=== PATIENT | male | born 1945 | race Caucasian/White ===

== ENCOUNTER 2020-08-16 11:14 | Outpatient (CLI) | payer MEDICARE, BC, SELFPAY | END 2020-08-16 11:15 | disposition home or self-care (01) | LOC: ANHCOVIDVC 11:14 | PROVIDERS: PCP Internal Medicine | DX: Z23 Encounter for immunization (principal) | CPT/HCPCS: 0001A; 91300 ==

== ENCOUNTER 2020-09-05 13:10 | Outpatient (CLI) | payer MEDICARE, BC, SELFPAY ==
--- NOTE | 2020-09-05 13:27 | ECHO_ITS ---
Patient Info Name: Cecil Mejía Age: 74 years : 1945 Gender: Male Ht: 73 in Wt: 280 lbs BSA: 2.60 m2 HR: 84 bpm BP: 163 / 82 mmHg Heart Rhythm: Sinus Rhythm Technical Quality: Good Exam Date: 09/05/2020 1:30 PM Exam Location: [facility] Patient Status: Outpatient Admit Date: 09/05/2020 Staff Ordering Physician: Elda Muse NP Executive Steward: Kika Artis RDCS Attending Provider: Elda Muse NP Referring Physician: Almaz HERNANDEZ; Exam Type: CA echo doppler color flow Study Info Indications - dizziness and giddiness Complete two-dimensional, color flow and Doppler transthoracic echocardiogram is performed. Summary 1. Complete two-dimensional, color flow and Doppler transthoracic echocardiogram is performed. 2. Left ventricular chamber dimension is mildly enlarged. 3. Left ventricular systolic function is normal, estimated at 65-70%. 4. There is mildly increased left ventricular wall thickness. 5. The left ventricular diastolic function is grade I diastolic dysfunction. 6. Left atrial chamber dimension is mildly enlarged. 7. There is mild aortic valve calcification. 8. There is mild aortic valve regurgitation. 9. There is mild mitral valve regurgitation. 10. There is mild tricuspid valve regurgitation. 11. The aortic root size at the sinus of Valsalva is mildly dilated. Left Ventricle Left ventricular chamber dimension is mildly enlarged. Left ventricular systolic function is normal, estimated at 65-70%. There is mildly increased left ventricular wall thickness. The left ventricular diastolic function is grade I diastolic dysfunction. Right Ventricle Right ventricular chamber dimension is normal. Right ventricular systolic function is normal. Left Atria Left atrial chamber dimension is mildly enlarged. Right Atria Right atrial chamber dimension is normal. Atrial Septum Intact interatrial septum visualized by color flow imaging. Aortic Valve The aortic valve is trileaflet. There is mild aortic valve sclerosis. There is no aortic valve stenosis. There is mild aortic valve regurgitation. There is mild aortic valve calcification. Pulmonic Valve The pulmonic valve is normal. There is no pulmonic valve stenosis. There is trace pulmonic regurgitation. Mitral Valve The mitral valve has calcified annulus. There is no mitral valve stenosis. There is mild mitral valve regurgitation. Tricuspid Valve The tricuspid valve leaflets are normal. There is no significant tricuspid valve stenosis. There is mild tricuspid valve regurgitation. No pulmonary hypertension, estimated pulmonary arterial systolic pressure is 29 mmHg. Pericardium/Pleural The pericardium appears epicardial fat pad. There is trivial pericardial effusion. Inferior Vena Cava Normal inferior vena cava with >50% collapse upon inspiration consistent with normal right atrial pressure, 10 mmHg. Aorta The aortic root size at the sinus of Valsalva is mildly dilated. Left Ventricular Outflow Tract Name Value Normal LVOT 2D LVOT Diameter 2.2 cm LVOT Doppler LVOT Peak Gradien
== END 2020-09-05 13:11 | disposition home or self-care (01) ==
PROVIDERS: PCP Internal Medicine; Visit Provider Nurse Practitioner
DX: R42 Dizziness and giddiness (principal); I11.9 Hypertensive heart disease without heart failure; I70.0 Atherosclerosis of aorta; I34.0 Nonrheumatic mitral (valve) insufficiency; I36.1 Nonrheumatic tricuspid (valve) insufficiency; I35.1 Nonrheumatic aortic (valve) insufficiency
CPT/HCPCS: 93306

== ENCOUNTER 2020-09-06 11:17 | Outpatient (CLI) | payer MEDICARE, BC, SELFPAY | END 2020-09-06 11:18 | disposition home or self-care (01) | LOC: ANHCOVIDVC 11:17 | PROVIDERS: PCP Internal Medicine | DX: Z23 Encounter for immunization (principal) | CPT/HCPCS: 0002A; 91300 ==

== ENCOUNTER 2021-07-17 10:04 | Outpatient (CLI) | payer MEDICARE, BC, SELFPAY ==
--- NOTE | 2021-07-17 12:45 | WPDPFTINT ---
PFT Procedure Performed PFT Procedure Performed Spirometry with Pre/Post Bronchodilator Plethysmography (Lung Vol) Diffusing Cap (DLCO) Flow Vol Loop PFT Interpretation This is a pulmonary function test with pre and post-bronchodilator spirometry, plethysmography and diffusing capacity. The test was performed and results interpreted in accordance with the 2019 and 2005 ATS/ERS Task Force guidelines respectively using the Global Lung Function Initiative-2012 reference equations. Patient demonstrated good effort and cooperation. Reproducibility criteria were met. The quality of the pre bronchodilator spirometry maneuver was Grade A and post bronchodilator spirometry maneuver was Grade A. Findings: Spirometry: There is decreased maximal expiratory airflow at all lung volumes with concave expiratory flow tracing. The pre bronchodilator FVC is 3.70 L, 82% predicted. The pre bronchodilator FEV1 is 1.83 L, 55% predicted. The pre bronchodilator FEV1: FVC ratio is 50%. The post bronchodilator FVC is 3.55 L, representing an 4% decrease. The post bronchodilator FEV1 is 2.03 L, representing 11% increase. The post bronchodilator FEV1: FVC ratio is 57%. Plethysmography: The total lung capacity is 7.06 L, 93% predicted. Functional residual capacity is 5.06 L, 123% predicted. The residual volume is 3.36 L, 125% predicted. Diffusing capacity: The absolute diffusion capacity is 25.3, 96% predicted. The diffusing capacity corrected for alveolar volume is 5.21, 143% predicted. Impression: There is a moderately severe obstructive abnormality without significant improvement after inhaling a single dose of albuterol. The lung volumes are normal. The diffusing capacity unadjusted for hemoglobin is normal and he Diffusing capacity adjusted for alveolar volume is increased. There are no prior studies for comparison
== END 2021-07-17 10:05 | disposition home or self-care (01) ==
LOC: ANHPFT 10:06
PROVIDERS: PCP Internal Medicine; Visit Provider Nurse Practitioner
DX: R79.81 Abnormal blood-gas level (principal); R94.2 Abnormal results of pulmonary function studies
CPT/HCPCS: 94060; 94726; 94729

== ENCOUNTER 2021-09-18 11:28 | Emergency (ER) | payer MEDICARE, BC, SELFPAY ==
--- NOTE | ~2021-09-18 | XR_ITS ---
EXAMINATION: XR chest 2V EXAM DATE: 09/18/2021 11:53 INDICATION: Productive cough. Congestion. TECHNIQUE: Frontal and lateral projections of the chest obtained and reviewed. There is no prior too dy for comparison. FINDINGS: There is 1 cm left midlung zone granuloma. The lungs are otherwise clear. There are no pl eural effusions. The cardiomediastinal silhouette is within normal limits. There is no pneumothorax suspected. Patient has diffuse idiopathic skeletal hyperostosis (DISH). IMPRESSION: No acute cardiopulmonary findings. Reviewed, dictated and finalized at location B.
[2021-09-18 11:43] VITALS: BP 161/78; PULSE 101; RESP 18; TEMP 36.8; O2SAT 96
--- NOTE | 2021-09-18 11:44 | ED.URI ---
HPI - URI/Sore Throat General Chief Complaint: Upper Respiratory Infection Stated Complaint: cold symptoms Time Seen by Provider: 09/18/21 11:44 Source: patient Mode of arrival: ambulatory Limitations: no limitations History of Present Illness HPI Narrative: Cecil Mejía is a 75 yo male with PMH of copd,HTN,hyothyroid,BPH, high cholesterol,who comes to [facility] with complaints of a cough and runny nose for the last 5 days. States he cannot get any of this congestion up with coughing Has had Covid vaccination Related Data Home Medications Medication Instructions Recorded Confirmed aspirin 81 mg tablet,delayed 81 mg PO DAILY 06/06/19 09/18/21 release glucosamine HCl 500 mg tablet 500 mg PO BID tablet 02/23/20 09/18/21 vitamins A,C,O-xmhm-umzlfa 14,320 2 cap PO ONCE cap 06/04/20 09/18/21 unit-226 mg-200 unit capsule finasteride 5 mg PO DAILY 09/18/21 09/18/21 naproxen sodium [Aleve] 220 mg PO BID PRN 09/18/21 09/18/21 Allergies Allergy/AdvReac Type Severity Reaction Status Date / Time Penicillins Allergy Unknown Rash Verified 09/18/21 11:52 Review of Systems Review of Systems: CONSTITUTIONAL: Denies fever, chills, sweats. EYES: Denies visual changes, redness, discharge. ENT: Denies rhinorrhea, has congestion, sore throat, otalgia. CARDIOVASCULAR: Denies chest pain, palpitations, edema. RESPIRATORY: Denies dyspnea, wheezing, has cough GASTROINTESTINAL: Denies abdominal pain, nausea, vomiting, diarrhea. GENITOURINARY: Denies dysuria, hematuria, abnormal discharge SKIN: Denies rash or itching. NEUROLOGIC: Denies numbness, or focal weakness. PSYCHIATRIC: Denies anxiety or depression. [facility] Past Medical History Medical History BPH (benign prostatic hyperplasia) Cervical radiculopathy Cholecystectomy planned Chronic bronchitis Chronic obstructive pulmonary disease Hernia History of fracture History of measles, mumps, or rubella Hyperlipidemia Hypertension Hypothyroidism Supraventricular tachycardia Surgical History Surgical History S/P catheter ablation of slow pathway Family History Family History Father Family history of malignant neoplasm Social History Social History Social History: Caffeine-none Smoking status: Former smoker Alcohol intake: never Comments At time of signature, I agree with nursing past medical, surgical, social and family history. There is no relevant family history pertinent to the presenting complaint. Exam Narrative: GENERAL: This is a well-nourished, well-developed patient, in moderate distress. HEAD: normocephalic, atraumatic. EYES: Sclera clear/white. Vision is grossly intact. EARS: External ears normal,. Hearing grossly intact. NOSE: External nose normal without nasal discharge, nares without redness, no rhinorrhea. THROAT: Mucous membranes moist, posterior pharynx erythema NECK: Neck supple, non-tender CARDIOVASCULAR: Tachycardic rate and rhythm without murmurs, gallops, or rubs. RESPIRATORY: Diminished to auscultation. Breath sounds diminished on left. No wheezes, rales, mild rhonchi. GASTROINTESTINAL: Abdomen soft, non-tender, SKIN: warm, intact with no suspicious lesions or rash, good texture and turgor. NEURO: awake, alert, and oriented to person, place and time. There were no obvious focal neurologic abnormalities. Steady gait EXTREMITIES: Normal range of motion. BACK: Nontender without deformity Course Course Emergency Course: Patient comes with cough which is primarily nonproductive for 5 days, uses an albuterol inhaler for COPD, has taken Tussinex ask and has had no improvement Chest x-ray- The lungs are otherwise clear. There are no pleural effusions. The cardiomediastinal silhouette is within normal limits. There
== END 2021-09-18 12:09 | disposition home or self-care (01) ==
PROVIDERS: Emergency Provider Nurse Practitioner; PCP Internal Medicine
DX: J20.9 Acute bronchitis, unspecified (principal); N40.0 Benign prostatic hyperplasia without lower urinary tract symptoms; E78.5 Hyperlipidemia, unspecified; I10 Essential (primary) hypertension; E03.9 Hypothyroidism, unspecified; M54.12 Radiculopathy, cervical region; Z87.891 Personal history of nicotine dependence
CPT/HCPCS: 71046; 99213; G0463

== ENCOUNTER 2022-01-31 12:10 | Inpatient (IN) | payer MEDICARE, BC, SELFPAY ==
[2022-01-31] VITALS (23 sets, daily range): BP systolic 155–193; BP diastolic 73–88; PULSE 71–105; RESP 15–29; TEMP 36.2–36.7; O2SAT 94–99; BMI 36.9
--- NOTE | ~2022-01-31 | XR_ITS ---
EXAMINATION: XR chest 2V DATE: 01/31/2022 12:54 INDICATION: Shortness of breath TECHNIQUE: Frontal and lateral views of the chest are obtained COMPARISON: 09/18/2021 FINDINGS: The lungs are free of acute opacities. A calcified nodule of the left upper lobe is consist ent with old granulomatous disease. No pleural effusion or pneumothorax. The cardiomediastinal silhou ette is normal. There is moderate thoracic spondylosis. IMPRESSION: 1. No acute cardiopulmonary abnormality. Reviewed, dictated and finalized at location B.
--- NOTE | 2022-01-31 12:14 | ECG_ITS ---
Measurements Intervals [place] Rate: 87 P: 31 VA: 294 QRS: -50 QRSD: 126 T: 61 QT: 381 QTc: 460 Interpretive Statements SINUS RHYTHM WITH FIRST DEGREE AV BLOCK LEFT ANTERIOR FASCICULAR BLOCK [QRS AXIS <= -45, QR IN I, RS IN II] MODERATE VOLTAGE CRITERIA FOR LVH, CONSIDER NORMAL VARIANT [MEETS CRITERIA IN ONE OF: R(aVL), S(V1), R(V5), R(V5/V6)+S(V1)] ABNORMAL ECG NO PREVIOUS ECG AVAILABLE FOR COMPARISON Electronically Signed On 01-31-2022 12:56:41 CDT by Gautam Barros M.D.
[2022-01-31 12:50] LABS: Basophils Percent Auto 0.6 % (0.2-1.2); Eosinophils Absolute Auto 0.1 K/mm3 (0-0.3); Eosinophils Percent Auto 0.9 % (0-4.4); Hematocrit 42.4 % (42.0-52.0); Hemoglobin 14.1 g/dL (14.0-18.0); Immature Granulocyte Absolute 0.02 K/mm3 (0.00-0.031); Immature Granulocyte Percent A 0.3 % (0-0.5); Lymphocytes Absolute Auto 0.92 K/mm3 (0.9-3.2); Lymphocytes Percent Auto 13.5 % (18.3-44.2); Mean Corpuscular HGB Conc 33.3 g/dl (32-36); Mean Corpuscular Hemoglobin 30.9 pg (26-34); Mean Platelet Volume 9.4 fl (7.4-10.4); Monocytes Absolute Auto 0.4 K/mm3 (0.1-0.6); Monocytes Percent Auto 5.6 % (2.6-8.5); Neutrophils Absolute Auto 5.4 K/mm3 (1.3-6.7); Neutrophils Percent Auto 79.1 % (45.5-73.1); Platelet Count Result 256 k/mm3 (150-375); Red Blood Count 4.56 M/mm3 (4.6-6.20); Red Cell Distribution Width 14.1 % (11.5-14.5); White Blood Count 6.8 K/mm3 (4.5-10.0)
[2022-01-31 13:02] LABS: Alanine Aminotransferase 23 U/L (6-50); Albumin Level 4.3 g/dL (3.5-5.1); Alkaline Phosphatase 61 U/L (38-126); Anion Gap 10 mmol/L (8-16); Aspartate Amino Transferase 50 U/L (17-59); Bilirubin,Total 0.5 mg/dL (0.2-1.3); Blood Urea Nitrogen 15 mg/dL (9-20); Calcium 9.3 mg/dL (8.4-10.2); Carbon Dioxide 30 mmol/L (22-30); Chloride 98 mmol/L (98-107); Estimated CRCL calculation 98 ml/min; Estimated Glomerular Filt Rate > 60; Glucose 114 mg/dL (65-110); Potassium 3.8 mmol/L (3.4-5.0); Sodium 138 mmol/L (137-145)
--- NOTE | 2022-01-31 13:58 | PC.NURSE ---
Patient currently denies CP, dizziness, or SOB at this time. Patient ambulatory to the BR without assistance. Respirations regular and non-labored.
--- NOTE | 2022-01-31 14:12 | PC.NURSE ---
Dr. Irvin at bedside to assess pt.
[2022-01-31 15:09] LABS: Lipase 263 U/L (23-300)
--- NOTE | 2022-01-31 15:33 | ED.GENADULT ---
HPI - General Adult General Chief complaint: Shortness of Breath/Dyspnea Stated complaint: sob Time Seen by Provider: 01/31/22 13:32 History of Present Illness HPI narrative: Patient is a 76-year-old male who presents ER with chest pain. Reports at 6:30 AM he had central chest burning that was persistent. It made him short of breath and felt different than typical pressure he has from COPD. He took some antiacids which she thinks improved the discomfort. Was seen by his PCP today and referred here. No history of heart disease. Does not typically have reflux. No loss consciousness. Related Data Home Medications Medication Instructions Recorded Confirmed aspirin 81 mg tablet,delayed 81 mg PO DAILY 06/06/19 01/31/22 release (Adult Low Dose Aspirin) glucosamine HCl 500 mg tablet 500 mg PO BID 02/23/20 01/31/22 vitamins A,C,U-kisg-qpyshz 14,320 2 cap PO ONCE 06/04/20 01/31/22 unit-226 mg-200 unit capsule (PreserVision AREDS) naproxen sodium 220 mg capsule 220 mg PO BID PRN Pain, Mild 09/18/21 01/31/22 (Aleve) Allergies Allergy/AdvReac Type Severity Reaction Status Date / Time Penicillins Allergy Unknown Rash Verified 01/31/22 11:02 Review of Systems Review of Systems: All systems reviewed & are unremarkable except as noted in HPI and below Constitutional: Constitutional: Denies chills, Denies fatigue and Denies fever(s) ENT: Denies nasal congestion and Denies sore throat Cardiovascular: Cardiovascular: Reports chest pain, Denies rapid heart rate and Denies radiating jaw, neck or arm pain Respiratory: Respiratory: Denies cough, Reports dyspnea and Denies wheezing Gastrointestinal: Gastrointestinal: Denies abdominal pain, Denies nausea and Denies vomiting Neurologic: Denies headache(s), Denies focal weakness and Denies numbness PMFSH Past Medical History Medical History BPH (benign prostatic hyperplasia) Cervical radiculopathy Cholecystectomy planned Chronic bronchitis Chronic obstructive pulmonary disease Hernia History of fracture History of measles, mumps, or rubella Hyperlipidemia Hypertension Hypothyroidism Supraventricular tachycardia Surgical History Surgical History S/P catheter ablation of slow pathway Family History Family History Father Family history of malignant neoplasm Social History Social History Social History: Caffeine-none Smoking status: Former smoker Alcohol intake: never Exam Narrative: GENERAL: Well-appearing, well-nourished, and in no acute distress. HEAD: Normocephalic, atraumatic. EYES: PERRL and EOMI. CHEST: Clear to auscultation. No respiratory distress. HEART: Regular rate and rhythm. Normal peripheral pulses. ABDOMEN: Soft, nontender, nondistended. EXTREMITIES: Normal range of motion. No edema. SKIN: Warm, dry, no rash. NEURO: Alert and oriented x3. PSYCH: Normal mood and affect. Course Course Emergency Course: Patient informed of results. Consulted cardiology. Admit to hospital service. Patient to be started on heparin. Vital Signs Vital signs: Vital Signs Temperature 97.6 F 01/31/22 12:20 Pulse Rate 105 H 01/31/22 12:20 Respiratory Rate 18 01/31/22 12:20 Blood Pressure 175/79 H 01/31/22 12:20 Pulse Oximetry 96 01/31/22 12:20 Oxygen Delivery Room Air 01/31/22 12:20 Temperature 97.6 F 01/31/22 12:20 Pulse Rate 85 01/31/22 18:00 Respiratory Rate 17 01/31/22 18:00 Blood Pressure 155/75 H 01/31/22 13:58 Pulse Oximetry 98 01/31/22 18:00 Oxygen Delivery Room Air 01/31/22 13:59 Medical Decision Making Vital Signs Vital Signs: Vital Signs Temperature 97.6 F 01/31/22 12:20 Pulse Rate 105 H 01/31/22 12:20 Respiratory Rate 18 01/31/22 12:20 Blood Pressure 175/79 H
[2022-01-31] MEDS: HEPARIN SODIUM 5,000 UNITS/ML VIAL 4000 UNITS IV PUSH ×2 (16:09→22:49)
[2022-01-31] MEDS: HEPARIN SOD/D5W 100 UNITS/ML 25,000 UNITS/250 ML BAG 10 UNITS IV CONT (16:11)
[2022-01-31 16:21] LABS: INR 1.1; Prothrombin Time 13.5 Seconds (11.1-14.7)
[2022-01-31 19:37] LABS: Partial Thromboplastin Time 46.1 SECONDS (22.3-36.8)
--- NOTE | 2022-01-31 20:59 | PC.NURSE ---
This patient, Cecil Mejía, was admitted to IMU Room 201-01. Patient/family oriented to hospital policies and general routines including ID bracelet, bed and alarms, visiting hours, pain management, procedures, bathroom and other care routines, personal items, smoking policy, room service/diet, and visiting hours. Information on how to activate the Rapid Response Team has been discussed. Patient/Family are encouraged to report perceived risks to care and to ask questions if they do not understand what they are told or what they should do.
--- NOTE | 2022-01-31 21:40 | PM.IMHP ---
H&P: HPI History of Present Illness Date/Time: 01/31/22 21:40 Chief Complaint: sob and wilson Narrative: This is a 76-year-old male patient who has no prior history of any coronary artery disease. However today the patient woke up at 6:30 a.m. this morning with central chest burning and he thought that this was acid reflux. The patient was belching and was having a lot of gas. The patient stated that he took Tums and Maalox in the only thing that helped was a Maalox. The patient stated that he also took aspirin. The patient was seen by his primary care doctor who referred him to the emergency room today. First troponin was 1.590 on 2nd troponin was 12.600. Cardiology has been consulted. Cardiology has been consulted. The patient was started on heparin drip. The patient was placed in observation status on the date of service of 01/31/2022 Review of Systems Review of Systems: See HPI All systems reviewed & are unremarkable except as noted in HPI and below Constitutional: Constitutional: Reports as per HPI and Reports no additional constitutional complaints Eyes: Eyes: Reports as per HPI and Reports no additional eye complaints ENT: Reports system reviewed and no additional complaints, except as documented and Reports Normal hearing present Cardiovascular: Cardiovascular: Reports no additional cardiovascular complaints Respiratory: Respiratory: Reports no additional respiratory complaints and Reports no additional respiratory complaints Gastrointestinal: Gastrointestinal: Reports as per HPI and Reports no additional gastrointestinal complaints Musculoskeletal: Musculoskeletal: Reports no additional musculoskeletal complaints Integumentary/Breasts: Skin/Breast: Reports system reviewed and no additional complaints, except as docu and Reports as per HPI Neurologic: Reports system reviewed and no additional complaints, except as documented, Reports as per HPI and Reports Normal hearing present Psychiatric: Psychiatric: Reports no additional psychiatric complaints and Reports as per HPI Endocrine: Endocrine: Reports no additional endocrine complaints Hematologic/Lymphatic: Hematologic/Lymphatic: Reports no additional hematologic/lymphatic complaints Allergic/Immunologic: Allergic/Immunologic: Reports no additional allergic/immunologic complaints [facility] Past Medical History Medical History (Updated 01/31/22 @ 21:54 by Ann Rain NP) BPH (benign prostatic hyperplasia) Cervical radiculopathy Cholecystectomy planned Chronic bronchitis Chronic obstructive pulmonary disease Depression with anxiety Hernia History of fracture History of kidney stones History of measles, mumps, or rubella Hyperlipidemia Hypertension Hypothyroidism Supraventricular tachycardia Surgical History Surgical History (Updated 01/31/22 @ 21:56 by Ann Rain NP) H/O cardiac radiofrequency ablation History of extraction of renal calculus Hx of cholecystectomy S/P catheter ablation of slow pathway Family History Family History (Updated 01/31/22 @ 21:55 by Ann Rain NP) Father Laryngeal cancer Daughter Generalized anxiety disorder Social History Social History (Updated 01/31/22 @ 21:57 by Ann Rain NP) Social History: The patient stated that he smokes cigarettes for about a year and of half when he was in the . He has not smoked since then. Patient has 2 children. He is and lives with his . 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 He denies any alcohol marijuana or illicit drugs. The is the durable power erisa attorney for healthcare. Code status full code Smoking status: Former smoker Second hand tobacco smoke exposure: Yes Alcohol intake: former Substance use: never Spiritual care concerns: No Meds Home Medications and Allergies Home Medications Medication Instructions Recorded Confirmed Type aspirin 81 mg tablet,delayed 81 mg PO DAILY 06/06/1901/31
[2022-01-31] MEDS: ACETAMINOPHEN 500 MG TABLET PO (22:10)
[2022-01-31] MEDS: diphenhydrAMINE HCl CAP 25 MG CAPSULE PO (22:11)
[2022-01-31 22:23] LABS: Partial Thromboplastin Time 41.6 SECONDS (22.3-36.8)
[2022-01-31] MEDS: MAG HYDROX/AL HYDROX/SIMETH 30 ML UDC PO (22:49)
[2022-01-31] MEDS: TAMSULOSIN HCL 0.4 MG CAPSULE PO (22:49)
[2022-02-01] VITALS (21 sets, daily range): BP systolic 150–184; BP diastolic 65–94; PULSE 66–113; RESP 14–24; TEMP 36.2–37.3; O2SAT 95–100
[2022-02-01] MEDS: SALINE 0.65% NAS SOLN 44 ML BTL 1 SPRAY NASAL (04:19)
[2022-02-01 04:52] LABS: Hematocrit 43.5 % (42.0-52.0); Hemoglobin 14.4 g/dL (14.0-18.0); Mean Corpuscular HGB Conc 33.1 g/dl (32-36); Mean Corpuscular Hemoglobin 30.8 pg (26-34); Mean Corpuscular Volume 92.9 fl (80-100); Mean Platelet Volume 9.4 fl (7.4-10.4); Platelet Count Result 250 k/mm3 (150-375); Red Blood Count 4.68 M/mm3 (4.6-6.20); Red Cell Distribution Width 13.9 % (11.5-14.5); White Blood Count 5.5 K/mm3 (4.5-10.0)
[2022-02-01 05:04] LABS: Alanine Aminotransferase 31 U/L (6-50); Albumin Level 4.5 g/dL (3.5-5.1); Alkaline Phosphatase 66 U/L (38-126); Anion Gap 9 mmol/L (8-16); Aspartate Amino Transferase 103 U/L (17-59); Bilirubin,Total 0.8 mg/dL (0.2-1.3); Blood Urea Nitrogen 12 mg/dL (9-20); Calcium 8.7 mg/dL (8.4-10.2); Carbon Dioxide 31 mmol/L (22-30); Chloride 100 mmol/L (98-107); Estimated CRCL calculation 110 ml/min; Estimated Glomerular Filt Rate > 60; Glucose 105 mg/dL (65-110); Lipase 241 U/L (23-300); Magnesium 2.2 mg/dL (1.6-2.3); Potassium 3.3 mmol/L (3.4-5.0); Sodium 140 mmol/L (137-145)
[2022-02-01 05:05] LABS: Partial Thromboplastin Time 78.6 SECONDS (22.3-36.8)
[2022-02-01 05:09] LABS: Cholesterol 176 mg/dL (0-200); HDL Direct 89 mg/dL; Triglycerides 83 mg/dL (<150)
[2022-02-01 05:19] LABS: LDL Cholesterol Direct 52 mg/dL
[2022-02-01] MEDS: LEVOTHYROXINE SODIUM 100 MCG TABLET PO (06:42)
[2022-02-01] MEDS: POTASSIUM CHLORIDE INJ 40 MEQ in SODIUM CHLORIDE 0.9% IV 500 ML 130 MEQ IVPB (09:41)
[2022-02-01] MEDS: amLODIPine BESYLATE 5 MG TABLET 10 MG PO (09:42)
[2022-02-01] MEDS: TRIAMTERENE 37.5 MG/HCTZ 25 MG (MAXZIDE) TABLET 1 TAB PO (09:42)
[2022-02-01] MEDS: PARoxetine 10 MG TABLET 30 MG PO (09:43)
[2022-02-01] MEDS: FINASTERIDE 5 MG TABLET PO (09:43)
[2022-02-01] MEDS: SIMVASTATIN 20 MG TABLET 40 MG PO (09:43)
[2022-02-01] MEDS: ENALAPRIL MALEATE 10 MG TABLET 40 MG PO (09:43)
[2022-02-01 10:12] LABS: Partial Thromboplastin Time 65.9 SECONDS (22.3-36.8)
[2022-02-01] MEDS: HEPARIN SOD/D5W 100 UNITS/ML 25,000 UNITS/250 ML BAG 16 UNITS IV CONT (10:44)
[2022-02-01] MEDS: HEPARIN SODIUM 5,000 UNITS/ML VIAL 4000 UNITS IV PUSH (10:47)
--- NOTE | 2022-02-01 12:40 | PM.IMPN ---
Progress Note: A&P Assessment and Plan (1) Non-ST elevation NE (NSTEMI): Code(s): I21.4 - Non-ST elevation (NSTEMI) myocardial infarction Status: Acute Assessment and Plan: -cardiology has been consulted and their input which per greatly be appreciated -continue to trend troponin -patient is currently on heparin drip. -he is currently pain-free. (2) Depression with anxiety: Code(s): F41.8 - Other specified anxiety disorders Status: Acute Assessment and Plan: -continue with Paxil (3) Chronic obstructive pulmonary disease: Code(s): J44.9 - Chronic obstructive pulmonary disease, unspecified Status: Acute Assessment and Plan: -continue with home inhalers (4) Hypothyroidism: Qualifiers: Hypothyroidism type: acquired Qualified Code(s): E03.9 - Hypothyroidism, unspecified Code(s): E03.9 - Hypothyroidism, unspecified Status: Acute Assessment and Plan: -continue with levothyroxine -check thyroid (5) BPH (benign prostatic hyperplasia): Qualifiers: Lower urinary tract symptom presence: unspecified whether lower urinary tract symptoms present Qualified Code(s): N40.0 - Benign prostatic hyperplasia without lower urinary tract symptoms Code(s): N40.0 - Benign prostatic hyperplasia without lower urinary tract symptoms Status: Acute Assessment and Plan: -continue with tamsulosin -continue with finasteride (6) Hypertension: Qualifiers: Hypertension type: essential hypertension Qualified Code(s): I10 - Essential (primary) hypertension Code(s): I10 - Essential (primary) hypertension Status: Acute Assessment and Plan: -continue with enalapril -continue with amlodipine (7) Hyperlipidemia: Qualifiers: Hyperlipidemia type: unspecified Qualified Code(s): E78.5 - Hyperlipidemia, unspecified Code(s): E78.5 - Hyperlipidemia, unspecified Status: Acute Assessment and Plan: -continue with simvastatin Subjective Date/time seen: 02/01/22 12:40 No chest pain Exam Const: General: cooperative, healthy appearing, comfortable, no acute distress, well developed, awake and Physically active Nutritional Appearance: obese Orientation/consciousness: oriented to person, oriented to place, oriented to time and patient oriented x3 Limitations: no limitations HENMT: Head: normal to inspection, No palpable skull fracture present, normocephalic and atraumatic Ears: hearing grossly normal bilaterally, external ears normal and TM's normal bilaterally General nose exam: Normal external nose present and Normal nares present Eyes: General: appearance normal, both eyes and all related structures Alignment and Position: alignment normal Periorbital: periorbital findings normal Eyelids: eyelids normal Sclera: sclerae normal Pupils: Equal, round and reactive pupils present EOM: EOMs intact bilaterally Neck: Neck: normal visual inspection, full ROM, no lymphadenopathy, trachea midline and supple Chest: Chest palpation & inspection: normal inspection of the chest Resp: Effort & Inspection: normal respiratory effort Auscultation: clear to auscultation bilaterally Percussion: percussion normal Cardio: Palpation: normal PMI Rate: regular rate Rhythm: regular rhythm Heart sounds: S1 normal heart sound present and S2 normal heart sound present Peripheral pulses: Peripheral pulses 2+ throughout GI: Inspection: normal to inspection Auscultation: normal bowel sounds Rectal Exam: deferred Back/Spine/Pelvis: Cervical Spine: cervical ROM normal Skin: General skin exam: normal color Lesions: no lesions Rashes: no rashes Trauma: no lacerations or abrasions Wounds: no wounds Hair: normal Nails: normal Neuro: General: oriented to person, oriented to place, oriented to time and patient oriented x3 Cranial nerves: Yes Equal, round and reactive pupils present and Yes Normal
--- NOTE | 2022-02-01 13:41 | PM.CNCAR ---
Assessment and Plan Assessment and plan (1) Non-ST elevation [place] (NSTEMI): Code(s): I21.4 - Non-ST elevation (NSTEMI) myocardial infarction Status: Acute Assessment and Plan: Continue heparin. Aspirin 81 mg p.o. daily will be ordered. Continue p.r.n. nitroglycerin. 2D echocardiogram Doppler will be ordered and reviewed. After discussing risks benefits alternatives patient will proceed with coronary angiogram today. He verbalized understanding and is agreeable. Further workup and recommendations depend on the results of the angiogram. (2) Chronic obstructive pulmonary disease: Code(s): J44.9 - Chronic obstructive pulmonary disease, unspecified Status: Acute (3) Hypertension: Qualifiers: Hypertension type: essential hypertension Qualified Code(s): I10 - Essential (primary) hypertension Code(s): I10 - Essential (primary) hypertension Status: Acute Assessment and Plan: Above goal. Continue amlodipine, enalapril, triamterene/hydrochlorothiazide (4) Hyperlipidemia: Qualifiers: Hyperlipidemia type: unspecified Qualified Code(s): E78.5 - Hyperlipidemia, unspecified Code(s): E78.5 - Hyperlipidemia, unspecified Status: Acute Assessment and Plan: On statin History of Present Illness History of Present Illness Consult date/time: 02/01/22 13:41 Reason For Visit: NSTEMI Narrative: Reason consultation: Non-STEMI Requesting provider: Dr. Irvin Date of service 02/01/2022 History: Patient is a 76-year-old male who came to hospital yesterday morning after seeing his primary care provider. Patient woke up and had some indigestion. He took some aspirin and Maalox which did help his symptoms but he has had off and on symptoms for about 1-2 hours. He described as a heaviness in his epigastric area. He had had 3 previous episodes of the past couple of weeks which would be worsened with exertion and improved with rest. Came to the hospital and initial troponins were elevated and have continued to rise. He is currently pain-free on a heparin drip. He denies any current chest pain, shortness breath, syncope, presyncope, paroxysmal nocturnal dyspnea, orthopnea, palpitations. Does have some chronic lower extremity edema Review of Systems Review of Systems: All systems reviewed & are unremarkable except as noted in HPI and below Constitutional: Constitutional: Denies body ache(s) Eyes: Eyes: Denies blurry vision ENT: Denies dysphagia Cardiovascular: Cardiovascular: Reports chest pain Respiratory: Respiratory: Denies chest congestion and Denies cough Gastrointestinal: Gastrointestinal: Denies abdominal pain Genitourinary: Genitourinary: Denies hematuria and Denies dysuria Musculoskeletal: Musculoskeletal: Denies back pain and Denies myalgias Integumentary/Breasts: Skin/Breast: Denies rash and Denies skin pain Neurologic: Denies confusion Psychiatric: Psychiatric: Denies anxiety and Denies behavioral changes Endocrine: Endocrine: Denies excessive sweating and Denies fatigue Hematologic/Lymphatic: Hematologic/Lymphatic: Denies easy bleeding Allergic/Immunologic: Allergic/Immunologic: Denies GI upset with certain foods PMFSH Past Medical History Medical History (Updated 01/31/22 @ 21:54 by Ann Rain NP) BPH (benign prostatic hyperplasia) Cervical radiculopathy Cholecystectomy planned Chronic bronchitis Chronic obstructive pulmonary disease Depression with anxiety Hernia History of fracture History of kidney stones History of measles, mumps, or rubella Hyperlipidemia Hypertension Hypothyroidism Supraventricular tachycardia Surgical History Surgical History (Updated 01/31/22 @ 21:56 by Ann Rain NP) H/O cardiac radiofrequency ablation History of extraction of renal calculus Hx of cholecystectomy S/P catheter ablation of slow pathway Family History Family History (Updated 01/31/22 @ 21:
--- NOTE | 2022-02-01 14:25 | WPDHPUPDATE1 ---
History and Physical Update Update Date/Time: 02/01/22 14:25 History and Physical has been reviewed, including an updated exam of the patient. There are NO changes in the patient's condition. Risks, benefits, and alternatives have been discussed and questions answered. Patient agrees to proceed with procedure.
--- NOTE | 2022-02-01 14:25 | WPDMODSED ---
Moderate Sedation Note-Pt Data Patient Data Diagnosis: nstemi Present Complaint: chest pain Procedure to be performed/Plan: coronary angiogram Allergies Allergy/AdvReac Type Severity Reaction Status Date / Time Penicillins Allergy Unknown Rash Verified 01/31/22 19:38 Home Medications Medication Instructions Recorded Confirmed Type aspirin 81 mg tablet,delayed 81 mg PO DAILY 06/06/19 01/31/22 History release (Adult Low Dose Aspirin) vitamins A,C,F-puid-ktoahx 14,320 2 cap PO ONCE 06/04/20 01/31/22 History unit-226 mg-200 unit capsule (PreserVision AREDS) simvastatin 40 mg tablet 40 mg PO DAILY #90 tabs 05/22/21 01/31/22 Rx paroxetine HCl 30 mg tablet 30 mg PO DAILY #90 tabs 06/21/21 01/31/22 Rx albuterol sulfate 90 mcg/actuation 1 inh inhalation Q4H PRN shortness 08/12/21 01/31/22 Rx aerosol inhaler of breath or wheezing #6.7 grams naproxen sodium 220 mg capsule 220 mg PO BID PRN Pain, Mild 09/18/21 01/31/22 History (Aleve) amlodipine 10 mg tablet 10 mg PO DAILY #90 tabs 12/31/21 01/31/22 Rx finasteride 5 mg tablet 5 mg PO DAILY #90 tabs 12/31/21 01/31/22 Rx enalapril maleate 20 mg tablet 40 mg PO DAILY 01/31/22 01/31/22 History glucosamine sulf dipot 1 cap PO BID 01/31/22 01/31/22 History chlr,msm,chond 550 mg-C 30 mg-karma 1 mg capsule (Glucosamine Chondroitin) levothyroxine 100 mcg tablet 100 mcg PO DAILY 01/31/22 01/31/22 History tamsulosin 0.4 mg capsule 0.4 mg PO HS 01/31/22 01/31/22 History triamterene 37.5 1 tablet PO DAILY 01/31/22 01/31/22 History mg-hydrochlorothiazide 25 mg tablet Current Medications: Active Medications Acetaminophen (Acetaminophen 500 Mg Tablet) 500 mg PO HS PRN PRN Reason: Mild Pain (1-3) or Fever Last Admin: 01/31/22 22:10 Dose: 500 mg Hydrocodone Bitart/Acetaminophen (Hydrocodone/Acetaminophen (*Crx) 5-325 Mg Tablet) 1 tab PO Q4H PRN PRN Reason: Pain Rated 4-6 Al Hydrox/Mg Hydrox/Simethicone (Mag Hydrox/Al Hydrox/Simeth 30 Ml Udc) 30 ml PO Q6H PRN PRN Reason: Indigestion Last Admin: 01/31/22 22:49 Dose: 30 ml Albuterol (Albuterol Sulfate (*Sp) Aerosol 1 Puff) 1 puff INHALATION Q4H PRN PRN Reason: shortness of breath or wheezing Amlodipine Besylate (Amlodipine Besylate 5 Mg Tablet) 10 mg PO DAILY [facility] Last Admin: 02/01/22 09:42 Dose: 10 mg Aspirin (Aspirin 81 Mg Enteric Tablet) 81 mg PO QAM [facility] Diphenhydramine HCl (Diphenhydramine Hcl Cap 25 Mg Capsule) 25 mg PO HS PRN PRN Reason: Insomnia Last Admin: 01/31/22 22:11 Dose: 25 mg Enalapril Maleate (Enalapril Maleate 10 Mg Tablet) 40 mg PO DAILY [facility] Last Admin: 02/01/22 09:43 Dose: 40 mg Finasteride (Finasteride 5 Mg Tablet) 5 mg PO DAILY [facility] Last Admin: 02/01/22 09:43 Dose: 5 mg Heparin Sodium (Porcine) (Heparin Sodium 5,000 Units/Ml Vial) 4,000 units IV PUSH PRN PRN PRN Reason: aPTT less than 55 seconds Last Admin: 02/01/22 10:47 Dose: 4,000 units Heparin Sodium (Porcine) (Heparin Sodium 5,000 Units/Ml Vial) 4,000 units IV PUSH PRN PRN PRN Reason: aPTT 55 - 70 seconds Hydralazine HCl (Hydralazine Hcl 20 Mg/Ml Vial) 10 mg IV PUSH Q8H PRN PRN Reason: Blood Pressure - High Heparin Sodium/Dextrose (Heparin Sodium/D5w 100 Units/Ml) 25,000 units in 250 mls @ 16 mls/hr IV CONT .[id number] [facility]; Protocol Last Admin: 02/01/22 10:44 Dose: 1,600 units/hr, 16 mls/hr Levothyroxine Sodium (Levothyroxine Sodium 100 Mcg Tablet) 100 mcg PO DAILY@0630 [facility] Last Admin: 02/01/22 06:42 Dose: 100 mcg Morphine Sulfate (Morphine Sulfate (*Crx) 4 Mg/Ml Inj) 4 mg IV PUSH Q2H PRN PRN Reason: Pain Rated 7-10 Ondansetron HCl (Ondansetron Inj 4 Mg/2 Ml Vial) 4 mg IV PUSH Q4H PRN PRN Reason: Nausea Paroxetine HCl (Paroxetine 10 Mg Tablet) 30 mg PO DAILY MARY Last Admin: 02/01/22 09:43 Dose: 30 mg Perflutren Lipid Microsphere (Perflutren Lipid Microspheres 1.5 Ml Vial Diluted To 10 Ml Total Volume) 0 ml IV PUSH ONCE PRN; Protocol PRN Reason: adequate visualization Simvastat
--- NOTE | 2022-02-01 14:26 | WPDCARDPROC ---
Cardiac Cath Procedure Note Date of procedure:: 02/01/22 Performing physician:: Elfego Pandya MD dos: 02/01/2022 Indication:: NSTEMI Brief clinical history:: 76-year-old patient with history of hypertension, depression, hyperlipidemia presents here to the hospital with epigastric abdominal pain and was found to have elevated troponins consistent with NSTEMI Procedure Procedure performed:: 1-Moderate sedation that started at 2:48 p.m.and ended at 4:00 p.m. with total duration 72 minutesusing 2 mg of Versed and 75mg fentanyl. The registered nurse was tara quach. 2-Selective left and right coronary angiogram. 3-Left heart catheterization with measurement of LVEDP and measurement of gradient across aortic valve. 4-Right common femoral arterial angiogram. 5-Deployment of 6 [place] Angio-Seal. 6- intravascular ultrasound LAD. 8- Stent deployment to the proximal LAD using huyen 5 x 26 Sedation/Medication given:: Moderate sedation. Access site:: Right common femoral artery. Estimated blood loss:: 10cc Procedure note:: After informed consent patient was brought in to medical lab assistant with the was draped and prepped in usual manner. Moderate sedation was given and the right groin was infiltrated using 1% lidocaine. Five [place] sheath was obtained using micropuncture needle and the modified Seldinger technique. Selective left coronary angiogram was done using JL4 catheter with the tip of the catheter placed in the left main coronary artery. Selective right coronary angiogram was done using JR4 catheter with the tip of the catheter placed to the right coronary artery. After that 5 [place] pigtail catheter was advanced across the aortic valve into the left ventricle with measurement of LVEDP and measurement of gradient across aortic valve. Right common femoral arterial angiogram was done. after that we decided to intervene LAD and the CLS 3.5 was not catheter we had to use a CLS 4 to engage the left main. A luge coronary wire advanced to distal LAD and then balloon angioplasty done using a 4 x 15 with inflation to 10 atmospheres for 25 seconds. intravascular ultrasound of the LAD done and then deployment of drug-eluting stent huyen 5 x 26 under nominal pressure for 25 seconds and postdilatation of the stent done using 5 x 15 noncompliant balloon 3 inflations each under normal pressure for 25 seconds. Findings:: 1- left coronary artery is a large artery that divides into large LAD, large circumflex artery. Left main is free of disease. 2- left anterior descending artery is a large artery that runs and wraps around the apex. Has proximal 90% stenosis. From the lesion there is about small diagonal branch that has ostial 70%. 3- leftcircumflex artery is a large artery And dominant with minimal irregularities. 4- Ramus intermedius is large artery with minimal irregularities. 4- right coronary artery is Small to medium in size and non dominant minimal irregularities 5- LVEDP was 15 mm mercury and no gradient across aortic valve. 6- opening arterial pressure was 198/100 and closing pressure was 190 over 90 7- right femoral artery angiogram shows no significant disease in the right common femoral artery. 8- intravascular ultrasound of the LAD shows that the LAD diameter is about 5 mm Conclusion:: - stenting of proximal LAD using 5 x 26 stent. residual disease 90% in the ostial small diagonal that comes out from the stent. will be managed medically Assessment and Plan Assessment and plan (1) Non-ST elevation [place] (NSTEMI): Code(s): I21.4 - Non-ST elevation (NSTEMI) myocardial infarction Status: Acute Plan continue aspirin and Brilinta. risk factor modification for CAD
[2022-02-01] MEDS: SODIUM CHLORIDE 0.9% IV 1,000 ML 100 ML IV CONT (17:44)
[2022-02-01] MEDS: MAG HYDROX/AL HYDROX/SIMETH 30 ML UDC PO (18:50)
[2022-02-01] MEDS: LORazepam (*CRX) 0.5 MG TABLET PO (18:50)
[2022-02-01] MEDS: TAMSULOSIN HCL 0.4 MG CAPSULE PO (20:28)
[2022-02-01] MEDS: ACETAMINOPHEN 500 MG TABLET PO (20:28)
[2022-02-01] MEDS: diphenhydrAMINE HCl CAP 25 MG CAPSULE PO (20:28)
[2022-02-02] VITALS (8 sets, daily range): BP systolic 126–127; BP diastolic 54–57; PULSE 82–100; RESP 20; TEMP 36.3–36.6; O2SAT 95–99
[2022-02-02] MEDS: MAG HYDROX/AL HYDROX/SIMETH 30 ML UDC PO (00:04)
--- NOTE | 2022-02-02 01:25 | ECG_ITS ---
Measurements Intervals [place] Rate: 91 P: -27 [place]: 256 QRS: -30 QRSD: 117 T: -22 QT: 401 QTc: 493 Interpretive Statements SINUS RHYTHM WITH FIRST DEGREE AV BLOCK VOLTAGE CRITERIA FOR LVH [MEETS CRITERIA IN ONE OF: R(aVL), S(V1), R(V5), R(V5/V6)+S(V1)] POSSIBLE SEPTAL MYOCARDIAL INFARCTION [30 ms Q WAVE IN V1/V2], PROBABLY OLD POSSIBLE LATERAL MYOCARDIAL INFARCTION [30 ms Q WAVE IN I/aVL/V5/V6], OF INDETERMINATE AGE ABNORMAL ECG COMPARED TO ECG 01/31/2022 12:25:10 NO SIGNIFICANT CHANGES Electronically Signed On 02-02-2022 12:22:16 CDT by Osmani Stock M.D.
[2022-02-02] MEDS: ONDANSETRON INJ 4 MG/2 ML VIAL IV PUSH (01:27)
[2022-02-02] MEDS: LEVOTHYROXINE SODIUM 100 MCG TABLET PO (05:36)
[2022-02-02 08:40] LABS: Hematocrit 42.6 % (42.0-52.0); Hemoglobin 14.2 g/dL (14.0-18.0); Mean Corpuscular HGB Conc 33.3 g/dl (32-36); Mean Corpuscular Hemoglobin 31.4 pg (26-34); Mean Corpuscular Volume 94.2 fl (80-100); Mean Platelet Volume 9.4 fl (7.4-10.4); Platelet Count Result 250 k/mm3 (150-375); Red Blood Count 4.52 M/mm3 (4.6-6.20); Red Cell Distribution Width 14.3 % (11.5-14.5); White Blood Count 7.5 K/mm3 (4.5-10.0)
[2022-02-02 08:53] LABS: Alanine Aminotransferase 27 U/L (6-50); Albumin Level 4.3 g/dL (3.5-5.1); Alkaline Phosphatase 60 U/L (38-126); Anion Gap 12 mmol/L (8-16); Aspartate Amino Transferase 69 U/L (17-59); Bilirubin,Total 0.9 mg/dL (0.2-1.3); Blood Urea Nitrogen 15 mg/dL (9-20); Calcium 9.2 mg/dL (8.4-10.2); Carbon Dioxide 29 mmol/L (22-30); Chloride 99 mmol/L (98-107); Estimated CRCL calculation 57 ml/min; Estimated Glomerular Filt Rate 49; Glucose 127 mg/dL (65-110); Potassium 3.6 mmol/L (3.4-5.0); Sodium 140 mmol/L (137-145)
[2022-02-02] MEDS: TRIAMTERENE 37.5 MG/HCTZ 25 MG (MAXZIDE) TABLET 1 TAB PO (08:58)
[2022-02-02] MEDS: TICAGRELOR 90 MG TABLET PO (08:58)
[2022-02-02] MEDS: PARoxetine 10 MG TABLET 30 MG PO (08:58)
[2022-02-02] MEDS: FINASTERIDE 5 MG TABLET PO (08:59)
[2022-02-02] MEDS: ENALAPRIL MALEATE 10 MG TABLET 40 MG PO (08:59)
[2022-02-02] MEDS: SIMVASTATIN 20 MG TABLET 40 MG PO (08:59)
[2022-02-02] MEDS: ASPIRIN 81 MG ENTERIC TABLET PO (08:59)
[2022-02-02] MEDS: amLODIPine BESYLATE 5 MG TABLET 10 MG PO (08:59)
--- NOTE | 2022-02-02 10:01 | PM.DS ---
DS: Admitting Diagnosis Discharge Date February 02, 2022 Admitting Diagnosis Non-STEMI DS: Discharge Diagnosis Discharge Diagnosis (1) Non-ST elevation [place] (NSTEMI): Code(s): I21.4 - Non-ST elevation (NSTEMI) myocardial infarction Status: Acute Assessment and Plan: Status post catheterization lesion at LAD. Status post drug-eluting stent was placed. (2) Depression with anxiety: Code(s): F41.8 - Other specified anxiety disorders Status: Acute Assessment and Plan: -continue with Paxil (3) Chronic obstructive pulmonary disease: Code(s): J44.9 - Chronic obstructive pulmonary disease, unspecified Status: Acute Assessment and Plan: -continue with home inhalers (4) Hypothyroidism: Qualifiers: Hypothyroidism type: acquired Qualified Code(s): E03.9 - Hypothyroidism, unspecified Code(s): E03.9 - Hypothyroidism, unspecified Status: Acute Assessment and Plan: -continue with levothyroxine -check thyroid (5) BPH (benign prostatic hyperplasia): Qualifiers: Lower urinary tract symptom presence: unspecified whether lower urinary tract symptoms present Qualified Code(s): N40.0 - Benign prostatic hyperplasia without lower urinary tract symptoms Code(s): N40.0 - Benign prostatic hyperplasia without lower urinary tract symptoms Status: Acute Assessment and Plan: -continue with tamsulosin -continue with finasteride (6) Hypertension: Qualifiers: Hypertension type: essential hypertension Qualified Code(s): I10 - Essential (primary) hypertension Code(s): I10 - Essential (primary) hypertension Status: Acute Assessment and Plan: -continue with enalapril -continue with amlodipine (7) Hyperlipidemia: Qualifiers: Hyperlipidemia type: unspecified Qualified Code(s): E78.5 - Hyperlipidemia, unspecified Code(s): E78.5 - Hyperlipidemia, unspecified Status: Acute Assessment and Plan: -continue with simvastatin DS: Summary Hospital Course Hospital Course: Patient was with the chest pain had mild elevation troponin. Cardiology was consulted and patient was ultimately taken to the tin can laborer and found have an LAD lesion with drug-eluting stent was placed. He will be sent home on Brilinta. Otherwise patient is doing well and can be discharged home follow-up cardiology Time Spent with Patient Time attestation: Total time spent providing and/or coordinating discharge services: Exam Const: General: cooperative, healthy appearing, comfortable, no acute distress, well developed, awake and Physically active Nutritional Appearance: obese Orientation/consciousness: oriented to person, oriented to place, oriented to time and patient oriented x3 Limitations: no limitations HENMT: Head: normal to inspection, No palpable skull fracture present, normocephalic and atraumatic Ears: hearing grossly normal bilaterally, external ears normal and TM's normal bilaterally General nose exam: Normal external nose present and Normal nares present Eyes: General: appearance normal, both eyes and all related structures Alignment and Position: alignment normal Periorbital: periorbital findings normal Eyelids: eyelids normal Sclera: sclerae normal Pupils: Equal, round and reactive pupils present EOM: EOMs intact bilaterally Neck: Neck: normal visual inspection, full ROM, no lymphadenopathy, trachea midline and supple Chest: Chest palpation & inspection: normal inspection of the chest Resp: Effort & Inspection: normal respiratory effort Auscultation: clear to auscultation bilaterally Percussion: percussion normal Cardio: Palpation: normal PMI Rate: regular rate Rhythm: regular rhythm Heart sounds: S1 normal heart sound present and S2 normal heart sound present Peripheral pulses: Peripheral pulses 2+ throughout GI: Inspection: normal to inspection Auscultation: normal bowel so
--- NOTE | 2022-02-02 10:21 | PM.PNCARD ---
Progress Note: A&P Assessment and Plan (1) Non-ST elevation [place] (NSTEMI): Code(s): I21.4 - Non-ST elevation (NSTEMI) myocardial infarction Status: Acute Assessment and Plan: Continue aspirin, Brilinta, statin. Will add metoprolol tartrate 25 mg p.o. b.i.d.. Will order a 2D echocardiogram Doppler (2) Hypertension: Qualifiers: Hypertension type: essential hypertension Qualified Code(s): I10 - Essential (primary) hypertension Code(s): I10 - Essential (primary) hypertension Status: Acute Assessment and Plan: Generally above goal. Adding metoprolol today. Continue other regimen (3) Hyperlipidemia: Qualifiers: Hyperlipidemia type: unspecified Qualified Code(s): E78.5 - Hyperlipidemia, unspecified Code(s): E78.5 - Hyperlipidemia, unspecified Status: Acute (4) CAD (coronary artery disease): Code(s): I25.10 - Atherosclerotic heart disease of [place] coronary artery without angina pectoris Status: Acute Assessment and Plan: As detailed above Subjective Date/time seen: 02/02/22 10:21 76-year-old admitted for or chest pain and ACS Catheterization yesterday:1- left coronary artery is a large artery that divides into large LAD, large circumflex artery.? Left main is free of disease. 2- left anterior descending artery is a large artery that runs and wraps around the apex.? Has proximal 90% stenosis.? From the lesion there is about small diagonal branch that has ostial 70%. 3- leftcircumflex artery is a large artery? And dominant with minimal irregularities. 4-? Ramus intermedius is large artery with minimal irregularities. 4- right coronary artery is? Small to medium in size and non dominant minimal irregularities 5- LVEDP was 15 mm mercury and no gradient across aortic valve. 6- opening arterial pressure was 198/100 and closing pressure was 190 over 90 7- right femoral artery angiogram shows no significant disease in the right common femoral artery. 8- intravascular ultrasound of the LAD shows that the LAD diameter is about 5 mm Date of service 02/02/2022: Feels well. No chest pain, shortness breath, groin pain Review of Systems Review of Systems: All systems reviewed & are unremarkable except as noted in HPI and below Constitutional: Constitutional: Denies body ache(s), Denies excessive sweating and Denies fatigue Eyes: Eyes: Denies blurry vision ENT: Denies dysphagia Cardiovascular: Cardiovascular: Reports chest pain Respiratory: Respiratory: Denies chest congestion and Denies cough Gastrointestinal: Gastrointestinal: Denies abdominal pain and Denies dysphagia Genitourinary: Genitourinary: Denies hematuria and Denies dysuria Musculoskeletal: Musculoskeletal: Denies back pain and Denies myalgias Integumentary/Breasts: Skin/Breast: Denies rash and Denies skin pain Neurologic: Denies behavioral changes and Denies confusion Psychiatric: Psychiatric: Denies anxiety, Denies behavioral changes and Denies confusion Endocrine: Endocrine: Denies excessive sweating and Denies fatigue Hematologic/Lymphatic: Hematologic/Lymphatic: Denies easy bleeding Allergic/Immunologic: Allergic/Immunologic: Denies GI upset with certain foods Exam Narrative: Awake alert and oriented appears stated age Const: General: comfortable; No in distress or confusion Orientation/consciousness: No confusion HENMT: General nose exam: Normal nares present Eyes: Sclera: sclerae normal Neck: Neck: supple Thyroid: abnormal thyroid Chest: Other: No reproducible chest wall pain to palpation Resp: Effort & Inspection: normal respiratory effort Auscultation: clear to auscultation bilaterally Cardio: Rate: regular rate Rhythm: regular rhythm Heart sounds: no murmurs Other: Right groin is free of hematoma ecchymosis or bruit GI: Inspection: non-distended Auscultation: normal bowel sounds Skin: General skin exam: normal color Neuro: Gen
[2022-02-02] MEDS: METOPROLOL TARTRATE 25 MG TABLET PO (11:30)
== END 2022-02-02 12:20 | disposition home or self-care (01) | DRG 247 ==
LOC: ANHED 13:37 → ANHIMU 18:00
PROVIDERS: Internal Medicine Cardiovascular Disease; Nurse Practitioner; Admitting Provider Internal Medicine; Emergency Provider Emergency Medicine; PCP Internal Medicine; Visit Provider Chiropractor
PROC: 4A023N7 Measurement of Cardiac Sampling and Pressure, Left Heart, Percutaneous Approach (ICD-10-PCS; CPT 93452; principal; 2022-02-01 14:30)
PROC: 027034Z Dilation of Coronary Artery, One Artery with Drug-eluting Intraluminal Device, Percutaneous Approach (ICD-10-PCS; 2022-02-01 14:30)
PROC: 027034Z Dilation of Coronary Artery, One Artery with Drug-eluting Intraluminal Device, Percutaneous Approach (ICD-10-PCS; 2022-02-01 14:30)
PROC: 027034Z Dilation of Coronary Artery, One Artery with Drug-eluting Intraluminal Device, Percutaneous Approach (ICD-10-PCS; 2022-02-01 14:30)
DX: I21.4 Non-ST elevation (NSTEMI) myocardial infarction (principal); I25.10 Atherosclerotic heart disease of native coronary artery without angina pectoris; I10 Essential (primary) hypertension; E78.5 Hyperlipidemia, unspecified; J44.9 Chronic obstructive pulmonary disease, unspecified; N40.0 Benign prostatic hyperplasia without lower urinary tract symptoms; E03.9 Hypothyroidism, unspecified; M54.12 Radiculopathy, cervical region; F41.8 Other specified anxiety disorders; Z90.49 Acquired absence of other specified parts of digestive tract; Z87.891 Personal history of nicotine dependence; Z79.82 Long term (current) use of aspirin
CPT/HCPCS: 36415; 71046; 80053; 80061; 83690; 83735; 84443; 84484; 85025; 85027; 85610; 85730; 92978; 93005; 93458; 96365; 96366; 96375; 99291; A9270; C1725; C1753; C1760; C1769; C1874; C1887; C1894; C9600; G0269; G0378; J0360; J0583; J1644; J2250; J2405; J3010; J3480; J7030; J7040

== ENCOUNTER 2022-02-06 14:22 | Outpatient (CLI) | payer MEDICARE, BC, SELFPAY ==
[2022-02-06 19:47] LABS: Anion Gap 11 mmol/L (8-16); Blood Urea Nitrogen 19 mg/dL (9-20); Calcium 9.4 mg/dL (8.4-10.2); Carbon Dioxide 26 mmol/L (22-30); Chloride 101 mmol/L (98-107); Estimated Glomerular Filt Rate > 60; Glucose 98 mg/dL (65-110); Potassium 3.8 mmol/L (3.4-5.0); Sodium 138 mmol/L (137-145)
== END 2022-02-06 14:23 | disposition home or self-care (01) ==
LOC: ANHGOSHLAB 14:26
PROVIDERS: PCP Internal Medicine; Visit Provider Nurse Practitioner
DX: I25.10 Atherosclerotic heart disease of native coronary artery without angina pectoris (principal)
CPT/HCPCS: 36415; 80048

== ENCOUNTER 2022-05-03 11:00 | Emergency (ER) | payer MEDICARE, BC, SELFPAY ==
[2022-05-03 12:30] VITALS: BP 149/74; PULSE 70; RESP 18; TEMP 36.5; O2SAT 99
--- NOTE | 2022-05-03 13:43 | ED.URI ---
HPI - URI/Sore Throat General Chief Complaint: Upper Respiratory Infection Stated Complaint: congestion,headache Time Seen by Provider: 05/03/22 13:33 Source: patient Mode of arrival: ambulatory Limitations: no limitations History of Present Illness HPI Narrative: Patient presents today with 3-4 day history of sinus pressure, postnasal drip, body aches. States his nasal drainage is bloody and brown. Denies cough or fever. He has been taking Tylenol with some relief. History of COPD. Reports was sick prior to him becoming ill. States he was possibly exposed to COVID by a nephew when he went over to their home to see their new baby. Related Data Home Medications Medication Instructions Recorded Confirmed aspirin 81 mg tablet,delayed 81 mg PO DAILY 06/06/19 03/28/22 release (Adult Low Dose Aspirin) vitamins A,C,W-bvxh-evhwwl 14,320 2 cap PO ONCE 06/04/20 03/28/22 unit-226 mg-200 unit capsule (PreserVision AREDS) enalapril maleate 20 mg tablet 40 mg PO DAILY 01/31/22 03/28/22 glucosamine sulf dipot 1 cap PO BID 01/31/22 03/28/22 chlr,msm,chond 550 mg-C 30 mg-karma 1 mg capsule (Glucosamine Chondroitin) tamsulosin 0.4 mg capsule 0.4 mg PO HS 01/31/22 03/28/22 Allergies Allergy/AdvReac Type Severity Reaction Status Date / Time Penicillins Allergy Unknown Rash Verified 02/06/22 13:27 Review of Systems Review of Systems: CONSTITUTIONAL: Denies fever, chills, or sweats.+ Body aches EYES: Denies visual changes, redness, or discharge. ENT: Denies rhinorrhea, congestion, sore throat, or otalgia.+ nasal drainage, postnasal drip, sinus pressure CARDIOVASCULAR: Denies chest pain, palpitations, or edema. RESPIRATORY: Denies cough or dyspnea. GASTROINTESTINAL: Denies abdominal pain, nausea, vomiting, or diarrhea. GENITOURINARY: Denies dysuria or hematuria. SKIN: Denies rash, itching, or wounds. MUSCULOSKELETAL: Denies back pain, joint pain, or myalgia. NEUROLOGIC: Denies headache, numbness, tingling, or weakness. PSYCH: Denies depression or anxiety. [facility] Past Medical History Medical History BPH (benign prostatic hyperplasia) Cervical radiculopathy Cholecystectomy planned Chronic bronchitis Chronic obstructive pulmonary disease Depression with anxiety Hernia History of fracture History of kidney stones History of measles, mumps, or rubella Hyperlipidemia Hypertension Hypothyroidism Supraventricular tachycardia Surgical History Surgical History H/O cardiac radiofrequency ablation History of extraction of renal calculus Hx of cholecystectomy S/P catheter ablation of slow pathway Family History Family History Father Laryngeal cancer Heart disease Pulmonary disease Heart attack Daughter Generalized anxiety disorder Social History Social History Social History: The patient stated that he smokes cigarettes for about a year and of half when he was in the . He has not smoked since then. Patient has 2 children. He is and lives with his . 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 He denies any alcohol marijuana or illicit drugs. The is the durable power managing attorney for healthcare. Code status full code Smoking status: Never smoker Second hand tobacco smoke exposure: Yes Alcohol intake: former Substance use: never Spiritual care concerns: No Comments At time of signature, I have reviewed and agree with nursing past medical, surgical, social and family history unless otherwise noted. Please see nursing chart for further information. There is no relevant family history pertinent to the presenting complaint Exam Narrative: GENERAL: Well-appearing, well-nourished, and in no acute distress. HEAD: [place]
== END 2022-05-03 14:22 | disposition home or self-care (01) ==
PROVIDERS: Emergency Provider Nurse Practitioner; PCP Internal Medicine
DX: J01.90 Acute sinusitis, unspecified (principal); Z20.822 Contact with and (suspected) exposure to COVID-19; Z87.891 Personal history of nicotine dependence; N40.0 Benign prostatic hyperplasia without lower urinary tract symptoms; J44.9 Chronic obstructive pulmonary disease, unspecified; E78.5 Hyperlipidemia, unspecified; I10 Essential (primary) hypertension; E03.9 Hypothyroidism, unspecified; Z79.82 Long term (current) use of aspirin
CPT/HCPCS: 87426; 99213; C9803; G0463

== ENCOUNTER 2022-06-25 11:00 | Outpatient (RCR) | payer MEDICARE, BC, SELFPAY ==
[2022-03-28 11:53] VITALS: PULSE 59
== END 2022-06-25 11:16 | disposition home or self-care (01) ==
LOC: ANHCPREHAB 11:00
PROVIDERS: PCP Internal Medicine; Visit Provider Nurse Practitioner Adult Health
DX: Z95.5 Presence of coronary angioplasty implant and graft (principal)
CPT/HCPCS: 93798

== ENCOUNTER 2022-06-26 08:24 | Outpatient (CLI) | payer MEDICARE, BC, SELFPAY ==
[2022-06-26 19:50] LABS: Basophils Percent Auto 0.7 % (0.2-1.2); Eosinophils Absolute Auto 0.5 K/mm3 (0-0.3); Eosinophils Percent Auto 7.9 % (0-4.4); Hemoglobin 14.2 g/dL (14.0-18.0); Immature Granulocyte Absolute 0.02 K/mm3 (0.00-0.031); Immature Granulocyte Percent A 0.3 % (0-0.5); Lymphocytes Absolute Auto 1.47 K/mm3 (0.9-3.2); Lymphocytes Percent Auto 25.4 % (18.3-44.2); Mean Corpuscular HGB Conc 32.3 g/dl (32-36); Mean Corpuscular Hemoglobin 30.5 pg (26-34); Mean Corpuscular Volume 94.4 fl (80-100); Mean Platelet Volume 9.4 fl (7.4-10.4); Monocytes Absolute Auto 0.5 K/mm3 (0.1-0.6); Monocytes Percent Auto 9.3 % (2.6-8.5); Neutrophils Absolute Auto 3.3 K/mm3 (1.3-6.7); Neutrophils Percent Auto 56.4 % (45.5-73.1); Platelet Count Result 280 k/mm3 (150-375); Red Blood Count 4.66 M/mm3 (4.6-6.20); Red Cell Distribution Width 13.8 % (11.5-14.5); White Blood Count 5.8 K/mm3 (4.5-10.0)
[2022-06-26 21:36] LABS: Alanine Aminotransferase 24 U/L (6-50); Albumin Level 3.9 g/dL (3.5-5.1); Alkaline Phosphatase 54 U/L (38-126); Anion Gap 5 mmol/L (8-16); Aspartate Amino Transferase 78 U/L (17-59); Bilirubin,Total 0.7 mg/dL (0.2-1.3); Blood Urea Nitrogen 14 mg/dL (9-20); Calcium 8.5 mg/dL (8.4-10.2); Carbon Dioxide 35 mmol/L (22-30); Chloride 102 mmol/L (98-107); Cholesterol 173 mg/dL (0-200); Estimated Glomerular Filt Rate > 60; Glucose 88 mg/dL (65-110); HDL Direct 72 mg/dL; Potassium 3.7 mmol/L (3.4-5.0); Sodium 142 mmol/L (137-145); Triglycerides 75 mg/dL (<150)
[2022-06-26 21:41] LABS: LDL Cholesterol Direct 63 mg/dL
[2022-06-26 22:01] LABS: Thyroid Stimulating Hormone 0.939 uIU/mL (0.465-4.680)
== END 2022-06-26 08:25 | disposition home or self-care (01) ==
LOC: ANHGOSHLAB 08:26
PROVIDERS: PCP Internal Medicine; Visit Provider Nurse Practitioner
DX: E03.9 Hypothyroidism, unspecified (principal); I10 Essential (primary) hypertension; E78.5 Hyperlipidemia, unspecified; Z13.29 Encounter for screening for other suspected endocrine disorder; Z12.5 Encounter for screening for malignant neoplasm of prostate
CPT/HCPCS: 36415; 80053; 80061; 84153; 84443; 85025; G0103

== ENCOUNTER 2022-09-17 17:27 | Emergency (ER) | payer MEDICARE, BC, SELFPAY ==
[2022-09-17 17:36] VITALS: BP 137/55; PULSE 62; RESP 20; TEMP 36.7; O2SAT 96
[2022-09-17 17:38] VITALS: BP 137/55; PULSE 62; RESP 20; TEMP 36.7; O2SAT 96
--- NOTE | 2022-09-17 18:27 | ED.MALEGU ---
HPI - Male Genitourinary General Chief complaint: Urogenital-Male Stated complaint: Possible UTI Time Seen by Provider: 09/17/22 18:14 Source: patient Mode of arrival: ambulatory Limitations: no limitations History of Present Illness HPI Narrative: Patient presents today complaining of he, ?funny feeling with urination and blood in the urine times 3-4 days. States he had similar symptoms 2 weeks ago but these resolved after drinking a lot of water. Denies abdominal pain or flank pain. History of kidney stones, but states this does not feel similar. Denies fever, nausea vomiting, sweats or chills. Patient takes Brilinta s/p NM in January. Related Data Home Medications Medication Instructions Recorded Confirmed aspirin 81 mg tablet,delayed 81 mg PO DAILY 06/06/19 09/17/22 release (Adult Low Dose Aspirin) vitamins A,C,R-jnje-ovlxvp 4,296 2 cap PO ONCE 06/04/20 09/17/22 mcg-226 mg-90 mg capsule (PreserVision AREDS) glucosamine sulf dipot 1 cap PO BID 01/31/22 09/17/22 chlr,msm,chond 550 mg-C 30 mg-karma 1 mg capsule (Glucosamine Chondroitin) tamsulosin 0.4 mg capsule 0.4 mg PO HS 01/31/22 09/17/22 Allergies Allergy/AdvReac Type Severity Reaction Status Date / Time Penicillins Allergy Unknown Rash Verified 06/30/22 13:35 Review of Systems Review of Systems: CONSTITUTIONAL: Denies body aches, fever, chills, or sweats. EYES: Denies visual changes, redness, or discharge. ENT: Denies rhinorrhea, congestion, sore throat, or otalgia. CARDIOVASCULAR: Denies chest pain, palpitations, or edema. RESPIRATORY: Denies cough or dyspnea. GASTROINTESTINAL: Denies abdominal pain, nausea, vomiting, or diarrhea. GENITOURINARY:+ hematuria SKIN: Denies rash, itching, or wounds. MUSCULOSKELETAL: Denies back pain, joint pain, or myalgia. NEUROLOGIC: Denies headache, numbness, tingling, or weakness. PSYCH: Denies depression or anxiety. [facility] Past Medical History Medical History BPH (benign prostatic hyperplasia) Cervical radiculopathy Cholecystectomy planned Chronic bronchitis Chronic obstructive pulmonary disease Depression with anxiety Hernia History of fracture History of kidney stones History of measles, mumps, or rubella Hyperlipidemia Hypertension Hypothyroidism Supraventricular tachycardia Surgical History Surgical History H/O cardiac radiofrequency ablation History of extraction of renal calculus Hx of cholecystectomy S/P catheter ablation of slow pathway Family History Family History Father Laryngeal cancer Heart disease Pulmonary disease Heart attack Daughter Generalized anxiety disorder Social History Social History Social History: The patient stated that he smokes cigarettes for about a year and of half when he was in the . He has not smoked since then. Patient has 2 children. He is and lives with his . 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 He denies any alcohol marijuana or illicit drugs. The is the durable power transactional attorney for healthcare. Code status full code Smoking status: Never smoker Second hand tobacco smoke exposure: Yes Alcohol intake: former Substance use: never Lack of Transportation: No Lack of Food: Never True Current Housing: I Have Housing Concerned About Future Housing: No Difficulty Paying Gas/Electric Bills: No Difficulty Paying for Meds: No Currently Unemployed: No Education: High School Diploma/GED Difficulty w/ Childcare or Family Care: No Spiritual care concerns: No Comments At time of signature, I have reviewed and agree with nursing past medical, surgical, social and family history unless otherwise noted. Please see nursing chart for further information. T
== END 2022-09-17 18:37 | disposition home or self-care (01) ==
PROVIDERS: Emergency Provider Nurse Practitioner; PCP Internal Medicine
DX: N30.01 Acute cystitis with hematuria (principal); N40.0 Benign prostatic hyperplasia without lower urinary tract symptoms; J44.9 Chronic obstructive pulmonary disease, unspecified; E78.5 Hyperlipidemia, unspecified; I10 Essential (primary) hypertension; E03.9 Hypothyroidism, unspecified; Z79.82 Long term (current) use of aspirin; Z87.442 Personal history of urinary calculi
CPT/HCPCS: 81003; 87086; 99213; G0463

== ENCOUNTER 2022-10-01 13:19 | Outpatient (CLI) | payer MEDICARE, BC, SELFPAY ==
[2022-10-01 19:00] LABS: Basophils Absolute Auto 0.1 K/mm3 (0.0-0.1); Basophils Percent Auto 0.9 % (0.2-1.2); Eosinophils Absolute Auto 0.5 K/mm3 (0-0.3); Eosinophils Percent Auto 7.9 % (0-4.4); Hematocrit 43.8 % (42.0-52.0); Hemoglobin 14.4 g/dL (14.0-18.0); Immature Granulocyte Absolute 0.01 K/mm3 (0.00-0.031); Immature Granulocyte Percent A 0.2 % (0-0.5); Lymphocytes Percent Auto 25.7 % (18.3-44.2); Mean Corpuscular HGB Conc 32.9 g/dl (32-36); Mean Corpuscular Volume 94.4 fl (80-100); Mean Platelet Volume 9.4 fl (7.4-10.4); Monocytes Absolute Auto 0.5 K/mm3 (0.1-0.6); Monocytes Percent Auto 9.3 % (2.6-8.5); Neutrophils Absolute Auto 3.3 K/mm3 (1.3-6.7); Platelet Count Result 254 k/mm3 (150-375); Red Blood Count 4.64 M/mm3 (4.6-6.20); Red Cell Distribution Width 13.5 % (11.5-14.5); White Blood Count 5.8 K/mm3 (4.5-10.0)
[2022-10-01 19:46] LABS: Appearance Urine Clear (Clear); Bilirubin Urine Negative (Negative); Blood Urine Negative (Negative); Color Urine Yellow (Yellow); Glucose Urine UA Negative (Negative); Ketones Urine Negative (Negative); Leukocyte Esterase Ur Negative LEU/UL (Negative); Nitrate Urine Negative (Negative); Protein Urine Negative (Negative); Specific Grav Ur 1.015 (1.001-1.035); Urobilinogen Urine 0.2 mg/dL (<2.0)
[2022-10-01 19:47] LABS: Add Urine Microscopic? NO
[2022-10-01 19:57] LABS: Cholesterol 163 mg/dL (0-200); HDL Direct 66 mg/dL; Triglycerides 96 mg/dL (<150)
[2022-10-01 20:15] LABS: LDL Cholesterol Direct 64 mg/dL
[2022-10-01 20:27] LABS: Thyroid Stimulating Hormone 0.988 uIU/mL (0.465-4.680)
[2022-10-01 20:34] LABS: Alanine Aminotransferase 29 U/L (6-50); Albumin Level 4.2 g/dL (3.5-5.1); Alkaline Phosphatase 54 U/L (38-126); Anion Gap 2 mmol/L (8-16); Aspartate Amino Transferase 77 U/L (17-59); Bilirubin,Total 0.8 mg/dL (0.2-1.3); Blood Urea Nitrogen 16 mg/dL (9-20); Calcium 8.8 mg/dL (8.4-10.2); Carbon Dioxide 37 mmol/L (22-30); Chloride 102 mmol/L (98-107); Estimated Glomerular Filt Rate > 60; Glucose 97 mg/dL (65-110); Sodium 141 mmol/L (137-145)
== END 2022-10-01 13:20 | disposition home or self-care (01) ==
LOC: ANHGOSHLAB 13:23
PROVIDERS: Clinical Nurse Specialist; Nurse Practitioner; PCP Internal Medicine; Visit Provider Internal Medicine
DX: E03.9 Hypothyroidism, unspecified (principal); E78.5 Hyperlipidemia, unspecified; R31.9 Hematuria, unspecified; N17.9 Acute kidney failure, unspecified
CPT/HCPCS: 36415; 80053; 80061; 81003; 84443; 85025

== ENCOUNTER 2023-06-18 10:07 | Emergency (ER) | payer MEDICARE, BC, SELFPAY ==
[2023-06-18 10:50] VITALS: BP 154/68; PULSE 73; RESP 18; TEMP 36.6; O2SAT 98
--- NOTE | 2023-06-18 11:14 | ED.URI ---
HPI - URI/Sore Throat General Chief Complaint: Upper Respiratory Infection Stated Complaint: sinus pain Time Seen by Provider: 06/18/23 11:18 Source: patient, RN notes reviewed and old records reviewed Mode of arrival: ambulatory Limitations: no limitations History of Present Illness HPI Narrative: 77-year-old male presents to [facility] with complaints of runny nose and a frontal sinus pressure since Thursday, 4 days. Patient denies pain. Denies fevers. Denies sore throat. Denies chest pain or abdominal pain. Denies any cough or chest congestion States he has taken Tylenol. No other treatment prior to arrival Onset (ago): day(s) (4) Treatments prior to arrival: acetaminophen Related Data Home Medications Medication Instructions Recorded Confirmed aspirin 81 mg tablet,delayed 81 mg PO DAILY 06/06/19 10/01/22 release (Adult Low Dose Aspirin) glucosamine sulf dipot 1 cap PO BID 01/31/22 10/01/22 chlr,msm,chond 550 mg-C 30 mg-karma 1 mg capsule (Glucosamine Chondroitin) ticagrelor 60 mg tablet (Brilinta) 60 mg PO Q12H 02/05/23 Allergies Allergy/AdvReac Type Severity Reaction Status Date / Time Penicillins Allergy Unknown Rash Verified 06/18/23 11:27 Review of Systems Review of Systems: All systems reviewed & are unremarkable except as noted in HPI and below Constitutional: Constitutional: Reports no additional constitutional complaints Eyes: Eyes: Reports no additional eye complaints ENT: Reports as per HPI, Denies dizziness, Denies otalgia, Reports nasal congestion, Reports nasal discharge, Denies sinus pain and Denies sore throat Cardiovascular: Cardiovascular: Reports no additional cardiovascular complaints, Denies chest pain and Denies dyspnea Respiratory: Respiratory: Reports no additional respiratory complaints, Denies chest congestion, Denies cough and Denies dyspnea Gastrointestinal: Gastrointestinal: Reports no additional gastrointestinal complaints, Denies abdominal pain, Denies nausea and Denies vomiting Musculoskeletal: Musculoskeletal: Reports no additional musculoskeletal complaints Integumentary/Breasts: Skin/Breast: Reports system reviewed and no additional complaints, except as docu Neurologic: Reports system reviewed and no additional complaints, except as documented Psychiatric: Psychiatric: Reports no additional psychiatric complaints Allergic/Immunologic: Allergic/Immunologic: Reports no additional allergic/immunologic complaints PMFSH Past Medical History Medical History CEZAR (acute kidney injury) BPH (benign prostatic hyperplasia) Cervical radiculopathy Cholecystectomy planned Chronic bronchitis Chronic obstructive pulmonary disease Depression with anxiety Hernia History of fracture History of kidney stones History of measles, mumps, or rubella Hyperlipidemia Hypertension Hypothyroidism Supraventricular tachycardia Surgical History Surgical History H/O cardiac radiofrequency ablation History of extraction of renal calculus Hx of cholecystectomy S/P catheter ablation of slow pathway Family History Family History Father Laryngeal cancer Heart disease Pulmonary disease Heart attack Daughter Generalized anxiety disorder Social History Social History Social History: The patient stated that he smokes cigarettes for about a year and of half when he was in the . He has not smoked since then. Patient has 2 children. He is and lives with his . 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 He denies any alcohol marijuana or illicit drugs. The is the durable power finance attorney for healthcare. Code status full code Smoking status: Never smoker Second hand tobacco smoke exposure: Yes Alcohol intake: former Substan
== END 2023-06-18 12:00 | disposition home or self-care (01) ==
PROVIDERS: Emergency Provider Nurse Practitioner; PCP Internal Medicine
DX: J01.90 Acute sinusitis, unspecified (principal); Z20.822 Contact with and (suspected) exposure to COVID-19; N40.0 Benign prostatic hyperplasia without lower urinary tract symptoms; J44.9 Chronic obstructive pulmonary disease, unspecified; E78.5 Hyperlipidemia, unspecified; I10 Essential (primary) hypertension; E03.9 Hypothyroidism, unspecified; Z79.82 Long term (current) use of aspirin
CPT/HCPCS: 87426; 87804; 99213; G0463

== ENCOUNTER 2023-08-06 14:01 | Outpatient (CLI) | payer MEDICARE, BC, SELFPAY ==
[2023-08-06 16:08] LABS: Alanine Aminotransferase 21 U/L (6-50); Albumin Level 4.2 g/dL (3.5-5.1); Alkaline Phosphatase 55 U/L (38-126); Anion Gap 5 mmol/L (8-16); Aspartate Amino Transferase 109 U/L (17-59); Bilirubin,Total 0.8 mg/dL (0.2-1.3); Blood Urea Nitrogen 20 mg/dL (9-20); Calcium 9.3 mg/dL (8.4-10.2); Carbon Dioxide 33 mmol/L (22-30); Chloride 102 mmol/L (98-107); Estimated Glomerular Filt Rate > 60; Glucose 110 mg/dL (65-110); Sodium 140 mmol/L (137-145)
[2023-08-06 16:20] LABS: Basophils Absolute Auto 0.1 K/mm3 (0.0-0.1); Basophils Percent Auto 0.7 % (0.2-1.2); Eosinophils Absolute Auto 0.6 K/mm3 (0-0.3); Eosinophils Percent Auto 7.9 % (0-4.4); Immature Granulocyte Absolute 0.01 K/mm3 (0.00-0.031); Immature Granulocyte Percent A 0.1 % (0-0.5); Lymphocytes Absolute Auto 1.35 K/mm3 (0.9-3.2); Lymphocytes Percent Auto 18.6 % (18.3-44.2); Mean Corpuscular HGB Conc 31.8 g/dl (32-36); Mean Corpuscular Hemoglobin 30.4 pg (26-34); Mean Corpuscular Volume 95.7 fl (80-100); Mean Platelet Volume 9.8 fl (7.4-10.4); Monocytes Absolute Auto 0.6 K/mm3 (0.1-0.6); Neutrophils Absolute Auto 4.7 K/mm3 (1.3-6.7); Neutrophils Percent Auto 64.7 % (45.5-73.1); Platelet Count Result 258 k/mm3 (150-375); Red Cell Distribution Width 13.5 % (11.5-14.5); White Blood Count 7.3 K/mm3 (4.5-10.0)
[2023-08-06 16:33] LABS: Prostate Specific Antigen 1.4 ng/mL (< OR = 4.0); Thyroid Stimulating Hormone 0.998 uIU/mL (0.465-4.680)
[2023-08-06 16:37] LABS: MALB Creatinine Ratio 9.7 mg/g (0-30); Microalbumin Urine Random 24.9 mg/L (0-16.7)
== END 2023-08-06 14:02 | disposition home or self-care (01) ==
LOC: ANHGOSHLAB 14:03
PROVIDERS: PCP Internal Medicine; Visit Provider Nurse Practitioner
DX: E03.9 Hypothyroidism, unspecified (principal); I10 Essential (primary) hypertension; I25.10 Atherosclerotic heart disease of native coronary artery without angina pectoris; Z12.5 Encounter for screening for malignant neoplasm of prostate; Z13.29 Encounter for screening for other suspected endocrine disorder
CPT/HCPCS: 36415; 80053; 82043; 84153; 84443; 85025; G0103

== ENCOUNTER 2023-10-27 11:28 | Outpatient (CLI) | payer MEDICARE, BC, SELFPAY ==
[2023-10-27 19:02] LABS: NT Pro B Type Natriuretic Pept 177 pg/mL (19.9-100)
[2023-10-27 19:04] LABS: Alanine Aminotransferase 23 U/L (6-50); Albumin Level 4.2 g/dL (3.5-5.1); Alkaline Phosphatase 50 U/L (38-126); Anion Gap 6 mmol/L (4-12); Aspartate Amino Transferase 64 U/L (17-59); Bilirubin,Total 0.8 mg/dL (0.2-1.3); Blood Urea Nitrogen 22 mg/dL (9-20); Calcium 9.1 mg/dL (8.4-10.2); Carbon Dioxide 32 mmol/L (22-30); Chloride 103 mmol/L (98-107); Estimated Glomerular Filt Rate > 60; Glucose 109 mg/dL (65-110); Potassium 3.5 mmol/L (3.4-5.0); Sodium 141 mmol/L (137-145)
[2023-10-27 20:41] LABS: Hepatitis C Virus Antibody Negative (Negative)
== END 2023-10-27 11:29 | disposition home or self-care (01) ==
LOC: ANHGOSHLAB 11:30
PROVIDERS: PCP Internal Medicine; Visit Provider Internal Medicine
DX: R74.8 Abnormal levels of other serum enzymes (principal); R06.09 Other forms of dyspnea
CPT/HCPCS: 36415; 80053; 83880; 86803

== ENCOUNTER 2023-11-06 12:39 | Outpatient (CLI) | payer MEDICARE, BC, SELFPAY ==
--- NOTE | ~2023-11-06 | CT_ITS ---
EXAMINATION:CT chest high resolution wo me DATE: 11/06/2023 12:59 INDICATION: Other forms of dyspnea. TECHNIQUE: Computed tomography (CT) of the chest was performed without intravenous contrast. Automate d exposure control and iterative reconstruction technique were employed. The dose-length product (DLP ) was 1147.47 mGy-cm. COMPARISON: None. FINDINGS: The lungs demonstrate mild atelectasis. A calcified left lung nodule and calcified left hil ar mediastinal lymph nodes are consistent with old granulomatous disease. No bronchiectasis or honeyc ombing. No pleural effusion. The heart size is normal. There are coronary artery calcifications. Ther e is a trace pericardial effusion. There is a 7 mm stone in right kidney. There is an 8 mm stone in l eft kidney. There are changes of cholecystectomy. There is an old healed bilateral rib fractures. The re is mild thoracic spondylosis. Thoracic kyphosis is noted. IMPRESSION: 1. No significant lung disease. Reviewed, dictated and finalized at location E.
--- NOTE | 2023-11-09 10:22 | P.PCNPFT_ITS ---
PFT Procedure Performed PFT Procedure Performed Plethysmography (Lung Vol) Diffusing Cap (DLCO) Flow Vol Loop Spirometry w/o Bronchodil PFT Interpretation Lung volumes were measured with the body plethysmography method the diminished lung volumes are indicative of a restrictive respiratory disease spirometry s howed diminished expiratory flow rates and a diminished FEV1 to FVC ratio 57%, indicative of a obstructive airway disease. No post bronchodilator study carried out. Lung diffusion capacity is within the normal range at 73% predicted. The flow volume loop is consistent with obstructive airway disease. In comparison to previous study done in early 2021, forced vital capacity is now lower by approximately 0.7 L and total lung capacity also lower by approximately 1.5 L. Impression: Combined restrictive respiratory and obstructive airway disease. Lung diffusion capacity within the normal range.
== END 2023-11-06 12:40 | disposition home or self-care (01) ==
PROVIDERS: PCP Internal Medicine; Visit Provider Internal Medicine
DX: R94.2 Abnormal results of pulmonary function studies (principal); R06.09 Other forms of dyspnea
CPT/HCPCS: 71250; 94375; 94726; 94729

== ENCOUNTER 2024-04-26 12:32 | Outpatient (CLI) | payer MEDICARE, BC, SELFPAY ==
[2024-04-26 13:34] LABS: Alanine Aminotransferase 25 U/L (6-50); Albumin Level 4.2 g/dL (3.5-5.1); Alkaline Phosphatase 56 U/L (38-126); Anion Gap 3 mmol/L (4-12); Aspartate Amino Transferase 109 U/L (17-59); Bilirubin,Total 0.7 mg/dL (0.2-1.3); Blood Urea Nitrogen 18 mg/dL (9-20); Calcium 9.5 mg/dL (8.4-10.2); Carbon Dioxide 37 mmol/L (22-30); Chloride 98 mmol/L (98-107); Estimated Glomerular Filt Rate > 60; Glucose 99 mg/dL (65-110); Potassium 3.5 mmol/L (3.4-5.0); Sodium 138 mmol/L (137-145)
[2024-04-26 13:46] LABS: Basophils Absolute Auto 0.1 K/mm3 (0.0-0.1); Basophils Percent Auto 0.9 % (0.2-1.2); Eosinophils Absolute Auto 0.5 K/mm3 (0-0.3); Eosinophils Percent Auto 9.2 % (0-4.4); Hematocrit 42.2 % (42.0-52.0); Hemoglobin 13.9 g/dL (14.0-18.0); Immature Granulocyte Absolute 0.01 K/mm3 (0.00-0.031); Immature Granulocyte Percent A 0.2 % (0-0.5); Lymphocytes Absolute Auto 1.34 K/mm3 (0.9-3.2); Lymphocytes Percent Auto 24.6 % (18.3-44.2); Mean Corpuscular HGB Conc 32.9 g/dl (32-36); Mean Corpuscular Hemoglobin 30.6 pg (26-34); Monocytes Absolute Auto 0.6 K/mm3 (0.1-0.6); Monocytes Percent Auto 10.5 % (2.6-8.5); Neutrophils Percent Auto 54.6 % (45.5-73.1); Platelet Count Result 224 k/mm3 (150-375); Red Blood Count 4.54 M/mm3 (4.6-6.20); Red Cell Distribution Width 14.3 % (11.5-14.5); White Blood Count 5.5 K/mm3 (4.5-10.0)
[2024-04-26 14:54] LABS: Folic Acid > 20.0 ng/mL (2.76->20)
== END 2024-04-26 12:33 | disposition home or self-care (01) ==
LOC: ANHGOSHLAB 12:34
PROVIDERS: PCP Internal Medicine; Visit Provider Internal Medicine
DX: R00.1 Bradycardia, unspecified (principal); I25.10 Atherosclerotic heart disease of native coronary artery without angina pectoris; I10 Essential (primary) hypertension; R53.83 Other fatigue; F41.8 Other specified anxiety disorders
CPT/HCPCS: 36415; 80053; 82607; 82746; 84402; 84403; 84443; 85025

== ENCOUNTER 2024-04-28 12:59 | Outpatient (CLI) | payer MEDICARE, BC, SELFPAY ==
--- NOTE | ~2024-04-28 | US_ITS ---
EXAMINATION: US soft tissue chest DATE: 04/28/2024 14:17 INDICATION: Anterior chest mass. TECHNIQUE: Multiple grayscale and Doppler ultrasound images of the anterior chest were obtained. COMPARISON: Chest CT 11/06/2023 FINDINGS: In the left anterior superior chest, there is an 8.7 x 2.3 x 4.4 cm subcutaneous mass that is isoechoic to normal subcutaneous fat, consistent with a lipoma. IMPRESSION: 1. Subcutaneous lipoma in left anterior superior chest. Reviewed, dictated and finalized at location A. RED VEHICLE OFFICER
== END 2024-04-28 13:00 | disposition home or self-care (01) ==
PROVIDERS: PCP Internal Medicine; Visit Provider Plastic Surgery
DX: R22.2 Localized swelling, mass and lump, trunk (principal)
CPT/HCPCS: 76604

== ENCOUNTER 2024-05-26 09:10 | Outpatient (CLI) | payer MEDICARE, BC, SELFPAY ==
--- NOTE | ~2024-05-26 | US_ITS ---
Limited Abdominal Sonogram: Real-time sonographic imaging of the right upper quadrant was performed. Clinical History: Abnormal serum enzyme levels Findings: The liver appears normal with no evidence of bile duct dilatation. 7 mm hypoechoic focus p resent in the right hepatic lobe. Main portal vein demonstrates normal direction of flow. The gallbla dder is absent, compatible prior cholecystectomy. The common bile duct measures 5 mm. The visualized pancreas, aorta, and IVC are unremarkable. Impression: 7 mm echogenic structure in the liver. This could reflect small hemangioma. Consider follow-up MR to attempt to confirm. Status post cholecystectomy. Reviewed, dictated and finalized at location . NOSTIC RADIOLOGIC TECHNOLOGIST Impression: 7 mm echogenic structure in the liver. This could reflect small hemangioma. Con prepress operator follow-up MR to attempt to confirm. Status post cholecystectomy.
== END 2024-05-26 09:11 | disposition home or self-care (01) ==
PROVIDERS: PCP Internal Medicine; Visit Provider Internal Medicine
DX: R74.8 Abnormal levels of other serum enzymes (principal); Z90.49 Acquired absence of other specified parts of digestive tract
CPT/HCPCS: 76705

== ENCOUNTER 2024-08-04 11:24 | Outpatient (NON) | payer MEDICARE, BC, SELFPAY | END 2024-08-04 11:25 | disposition home or self-care (01) | PROVIDERS: PCP Internal Medicine; Visit Provider Plastic Surgery | DX: D17.1 Benign lipomatous neoplasm of skin and subcutaneous tissue of trunk (principal) | CPT/HCPCS: 88304 ==

== ENCOUNTER 2024-10-19 13:54 | Outpatient (CLI) | payer MEDICARE, BC, SELFPAY ==
--- OUTSIDE RECORDS SUMMARY | 2024-10-19 14:06 | XMS_ITS | Encounter Summary ---
Author Organization [facility] Address [address] [facility] [place] [address] Care Team Providers Care Shank Rander Name Role Phone Unavailable Primary Care Provider Unavailabl e Encounter Details Date Type Department Care Team (Late st Contact Info) Description 11/03/2019 Lab Requisition [facility] DermPath Lab 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 Gender Identity Not on file Sexual Orientation Not on file documented as of this encounter Plan of Treatment Not on file documented as of this encounter Procedures Procedure Name Priority Date/Time Associated Diagnosis Comments DERMATOPATHOLOGY Routine 11/02/2019 12:0 0 AM CDT documented in this encounter Results * DERMATOPATHOLOGY (11/02/2019 12:00 AM CDT) Case Report Dermatopathology Report Case: [id number] Authorizing Provider: Servando Cuellar MD Collected: 11/02/2019 12:00 AM Ordering Location: [facility] DermPath Lab Received: 11/03/2019 12:37 PM Pathologist: Anisa Wilson MD Specimen: Skin, left lower lat marjorie lip border 0 12:33 PM CDT DERMATOPATHOLOGY LABORATORY Final Diagnosis Specimen A. 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 0 12:33 PM CDT DERMATOPATHOLOGY LABORATORY Gross Description Specimen A: Received is one formalin filled container labeled with the patient's name and designated left lower lat marjorie lip border. The specimen consists of a shave biopsy measuring [id number], bisected. Jar 0. 0 12:33 PM CDT DERMATOPATHOLOGY LABORATORY Microscopic Description Specimen A. SKIN, left lower lat marjorie lip border: Sections show a proliferation of blood vessels in lobules lined by uniform endothelial cells and by fibrous septa. The stroma is edematous and contains a mixed inflammatory cell infiltrate. The overlying epidermis is eroded. 0 12:33 PM CDT DERMATOPATHOLOGY LABORATORY Disclaimer An external and internal positive and negative controls are appropriate for the histochemical, immunohistochemical and immunofluorescence stain(s) in this case (if any), except where stated explicitly. The performance characteristics of the stain(s) cited in this report were developed and its performance characteristic determined by the Dermatopathology Laboratory at [facility], directed by Dr. Johnson Souza. These tests need not be, and therefore are not, approved by the [place] Food and Drug Administration. The tests are used for clinical purposes. Billing Codes Specimen Charges Stain Charges 99084 1 0 12:33 PM CDT DERMATOPATHOLOGY LABORATORY Embedded Images 0 12:33 PM CDT DERMATOPATHOLOGY LABORATORY Pathology/Cytolog y TISSUE SPECIMEN FROM SKIN / Unknown 11/02/2019 11/03/2019 12:37 PM CDT Servando Cuellar MD LAB - PATHOLOGY/CYTOLOGY ORD ERABLES Final Result DERMATOPATHOLOGY LABORATORY [facility] - Department of Dermatology [facility] [address] [place] [address] documented in this encounter Visit Diagnoses Not on filedocumented in this encounter
--- OUTSIDE RECORDS SUMMARY | 2024-10-19 14:06 | XMS_ITS | Encounter Summary ---
Author Organization [facility] Address [address] [place] [address] Care Team Providers Care Surveillance Inspector Name Role Phone Unavailable Primary Care Provider Unavailabl e Encounter Details Date Type Department Care Team (Late st Contact Info) Description 04/22/2018 Lab Requisition [facility] Derm[facility] Lab [address] [facility] [place] [address] Servando Cuellar MD [address] [place] [address] Social History Tobacco Use Types Packs/Day Years Used Date Smoking Tobacco: Never Assessed Sex and Gender Information Value Date Recorded Sex Assigned at Not on file 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 Gender Identity Not on file Sexual Orientation Not on file documented as of this encounter Plan of Treatment Not on file documented as of this encounter Procedures Procedure Name Priority Date/Time Associated Diagnosis Comments DERMATOPATHOLOGY Routine 04/21/2018 12:0 0 AM AED TRAINER documented in this encounter Results * DERMATOPATHOLOGY (04/21/2018 12:00 AM AED TRAINER) Case Report Dermatopathology Report Case: [id number] Authorizing Provider: Servando Cuellar MD Collected: 04/21/2018 12:00 AM Pathologist: Sherry Keenan MD Received: 04/22/2018 12:16 PM Specimen: Skin, left sideburn 1:03 PM [facility] DERMATOPATHOLOGY LABORATORY Final Diagnosis Specimen A. SKIN, left sideburn: SOLAR LENTIGO (L81.4) 1:03 PM [facility] DERMATOPATHOLOGY LABORATORY Clinical History R/O ISK 1:03 PM [facility] DERMATOPATHOLOGY LABORATORY Gross Description Specimen A: Received is one formalin filled container labeled with the patient's name and designated left sideburn. The specimen consists of a shave biopsy measuring 9x8x1 mm. Jar 0. 1:03 PM [facility] DERMATOPATHOLOGY LABORATORY Microscopic Description Specimen A. SKIN, left sideburn: There is orthokeratosis. There is a slight increase in epidermal thickness with lentiginous buds of hyperpigmented keratinocytes. The number of melanocytes is only mildly increased. In the dermis, there is basophilic degeneration of elastic fibers. 1:03 PM [facility] DERMATOPATHOLOGY LABORATORY Disclaimer An external and internal positive and negative controls are appropriate for the histochemical, immunohistochemical and immunofluorescence stain(s) in this case (if any), except where stated explicitly. The performance characteristics of the stain(s) cited in this report were developed and its performance characteristic determined by the Dermatopathology Laboratory at [facility]. These tests need not be, and therefore are not, approved by the [place] Food and Drug Administration. The tests are used for clinical purposes. Billing Codes Specimen Charges Stain Charges 09569 1 1:03 PM [facility] DERMATOPATHOLOGY LABORATORY Embedded Images 1:03 PM [facility] DERMATOPATHOLOGY LABORATORY Pathology/Cytolog y TISSUE SPECIMEN FROM SKIN / Unknown 04/21/2018 04/22/2018 12:16 PM AED TRAINER us Servando Cuellar MD LAB - PATHOLOGY/CYTOLOGY ORD ERABLES Final Result DERMATOPATHOLOGY LABORATORY [facility] - Department of Dermatology [address] [place] [address], [facility] [phone] documented in this encounter Visit Diagnoses Not on filedocumented in this encounter
--- OUTSIDE RECORDS SUMMARY | 2024-10-19 14:07 | XMS_ITS | Clinical Summary ---
Author Organization [facility] Address [address] [place] [id number] Care Team Providers Care Senior Process Control Tech Name Role Phone Osmany Dalton DO Primary Care Provider [phone] Allergies Active Allergy Reactions Criticality Noted Date Comments Penicillins Swelling,Blisters High 02/28/2022 Medications levothyroxine (SYNTHROID) 100 mcg tablet Take 1 tablet (100 mcg total) by mouth daily 2 Active PARoxetine (PAXIL) 40 mg tablet Take 1 tablet (40 mg total) by mouth daily 2 Active finasteride (PROSCAR) 5 mg tablet Take 1 tablet (5 mg total) by mouth daily 2 Active triamterene-hyd roCHLOROthiazid e 37.5-25 mg per tablet Take 1 tablet/capsule by mouth daily 2 Active tamsulosin (FLOMAX) 0.4 mg extended release capsule Take 1 capsule (0.4 mg total) by mouth daily 2 Active enalapril (VASOTEC) 20 mg tablet Take 1 tablet (20 mg total) by mouth 2 (two) times a day 2 Active aspirin 81 mg enteric coated tablet Take 1 tablet (81 mg total) by mouth daily Active vitamins A,C,E-zinc-joey er (ICAPS) 14,320-226-200 avbu-hg-hhyj capsule Take by mouth Active albuterol HFA (PROVENTIL HFA,VENTOLIN HFA,PROAIR HFA) 90 mcg/actuation inhaler Inhale 2 puffs every 6 (six) hours as needed for wheezing Active glucosamine-cho ndroitin 500-400 mg capsule 1 capsule Active furosemide (LASIX) 20 mg tabletIndicatio ns:Bilateral lower extremity edema Take 1 tablet (20 mg total) by mouth daily as needed (swelling) 30 tablet 1 4 Active nitroglycerin (NITROSTAT) 0.4 mg SL tabletIndicatio ns:Coronary artery disease involving [place] coronary artery of [place] heart without angina pectoris DISSOLVE ONE TABLET UNDER TONGUE NEEDED FOR CHEST PAIN EVERY 5 MINUTES FOR UP TO 3 DOSES TOTAL. 25 tablet 3 4 Active Additional Information Patient not taking.Reported on 04/01/2024 budesonide-form oteroL (SYMBICORT) 160-4.5 mcg/actuation inhaler Inhale 1 puff 2 (two) times a day 4 Active ticagrelor (BRILINTA) 60 mg tabletIndicatio ns:Coronary artery disease involving [place] coronary artery of [place] heart without angina pectoris Take 1 tablet (60 mg total) by mouth 2 (two) times a day 60 tablet 11 4 02/04/20 25 Active amLODIPine (NORVASC) 5 mg tablet Take 1 tablet (5 mg total) by mouth daily 4 Active rosuvastatin (CRESTOR) 40 mg tablet TAKE 1 TABLET(40 MG) BY MOUTH DAILY 90 tablet 4 Active Active Problems Problem Noted Date Diagnosed Date PULLIAM (dyspnea on exertion) 12/31/2023 Bilateral lower extremity edema 07/15/2023 Primary hypertension 04/29/2023 Other chest pain 04/29/2023 Lipid screening 04/29/2023 Morbid (severe) obesity due to excess calories 1 06/29/2022 Chronic obstructive pulmonary disease 07/04/2022 Hyperlipidemia LDL goal <70 07/04/2022 Essential hypertension 07/04/2022 History of supraventricular tachycardia 07/04/19 23 Coronary artery disease invo lving [place] coronary artery of [place] heart without angina pectoris 07/04/2022 Surgical History Surgery Date Site/Laterality Comments CORONARY ANGIOPLASTY CARDIAC CATHETERIZATION Medical History Medical History Date Comments Supraventricular tachycardia Thyroid disease Hypertension BPH (benign prostatic hyperplasia) Depression Anxiety Social History Tobacco Use Types Packs/Day Years Used Date Smoking Tobacco: Former Cigarettes Q uit: 06/27/1969 Smokeless Tobacco: Never Tobacco Cessation:Counseling Given: Not Answered AUDIT-C Answer Date Recorded Q1: How often do you have a drink containing alcohol? Never 07/04/2022 Q2: How many drinks containi ng alcohol do you have on a typical day when you are drinking? Patient does not drink Q3: How often do you have si x or more drinks on one occasion? 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 Gender Identity Not on file Sexual Orientation Not on file Obstetrics History Last Filed Vital Signs Vital Sign Reading Time Taken Comments Blood Pressure 130/60 04/01/2024 2:31 PM CDT Pulse 78 04/01/2024 2:03 PM CDT Temperature - - Respiratory Rate 16 02/10/2024 10:31 AM CDT Oxygen Saturation 95% 04/01/2024 2:03 PM CDT Inhaled Oxygen Concentration - - Weight 127 kg (280 lb) 04/01/2024 2:03 PM CDT Height 185.4 cm (6' 1 ) 04/01/2024 2:03 PM CDT Body Mass Index 36.94 04/01/2024 2:03 PM CDT Plan of Treatment Health Maintenance Due Date Last Done Comments Depression Screening 1945 Fall Risk Assessment 1945 Hepatitis C Screening 1945 Hepatitis B Screening 1964 Zoster Vaccine (1 of 2) 1996 Abdominal Aortic Aneurysm (A AA) Screen 12/15/2011 Well Visit 65+ 12/15/2011 Covid-19 Vaccine (2023-2 5 season) 2024 04/28/2021, 09/06/2020, 08/16/2020 Influenza Vaccine (Season Ended) 2025 03/18/2022, 03/08/2019, 03/10/2017, Additional history exists DTaP/Tdap/Td Vaccine (3 - Td or Tdap) 08/13/2031 08/12/2021, 11/13/2016 Pneumococcal vaccine 65+ Completed 022, 06/06/2019, 05/08/2011 Insurance MEDICARE [facility] Address: [address] [place] [address] MEDICARE [facility] Care Teams Senior Process Control Tech Relationship Specialty Start Date End Date Osmany Dalton DO PCP - General Internal Medicine 02/01/22
--- OUTSIDE RECORDS SUMMARY | 2024-10-19 14:07 | XMS_ITS | Referral Summary ---
Author Organization [facility] Address [address] [place] [address] Care Team Providers Care Yardmaster Name Role Phone Osmany Dalton DO Primary Care Provider +1- [phone] Allergies Active Allergy Reactions Criticality Noted Date [...] daily Active vitamins A,C,E-zinc-joey er (ICAPS) 14,320-226-200 fzhl-sq-ywij capsule Take by mouth Active albuterol HFA [...] mg SL tabletIndicatio ns:Coronary artery disease involving [place] coronary artery of [place] heart without angina pectoris DISSOLVE ONE TABLET UNDER TONGUE NEEDED FOR CHEST PAIN EVERY 5 MINUTES FOR UP TO 3 DOSES TOTAL. 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
--- OUTSIDE RECORDS SUMMARY | 2024-10-19 14:07 | XMS_ITS | Clinical Summary ---
Author Organization [facility] Address [address] [place] [address] Care Team Providers Care Engraver Machine Name Role Phone Unavailable Primary Care Provider Unavailabl e Source Comments [facility],non-owned Affiliates and Associated Physician Practices is amultiple site organization consisting of ambulatory clinics and hospital sitesin [place], [place], [place] and [place]. This disclosure is being madepursuant to the Care Everywhere program and may not contain all information available regarding this patient. 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 Gender Identity Not on file Sexual Orientation Not on file Plan of Treatment Health Maintenance Due Date Last Done Comments MEDICARE AWV 12 MONTHS 1945 HEPATITIS C SCREENING 12/09/1964 DTAP/TDAP/TD VACCINES (1 - Tdap) 1965 PNEUMOCOCCAL VACCINE 50+ (1 of 1 - PCV) 1996 ZOSTER VACCINE (1 of 2) 1996 Respiratory Syncytial Virus (RSV) Vaccine Pt: or over 60 yrs (1 - 1-dose 75+ series) 2021 COVID-19 VACCINE ( - 2023-2 5 season) 2024 DEPRESSION SCREENING 06/08/2024 INFLUENZA VACCINE (Season Ended) 2025 HEPATITIS B VACCINE Aged Out No longe r eligible based on patient's age to complete this topic HIB VACCINE Aged Out No longer eligi ble based on patient's age to complete this topic HPV VACCINE Aged Out No longer eligi ble based on patient's age to complete this topic MENINGOCOCCAL (Group B) VACC INE SHARED DECISION-MAKING Aged Out No longer eligibl e based on patient's age to complete this topic MENINGOCOCCAL GROUPS A/C/Y/W VACCINE Aged Out No longer eligible b ased on patient's age to complete this topic Insurance [facility] MEDICARE MEDICARE [facility] SELF PAY NO INSURANCE Member Subscriber Plan / Payer (Ef fective for All Dates) Name:Mike Quiroga Member ID:Not on file Relation to Subscriber:Not on file Name:MIKE QUIROGA Subscriber ID:Not on file (Home) Address: [address] [place] [address] [place] [address] Payer ID:Not on file Group ID:Not on file Type:Self Pay Address: [facility]
== END 2024-10-19 13:55 | disposition home or self-care (01) ==
LOC: ANHAUDIO 13:55
PROVIDERS: PCP Internal Medicine; Visit Provider Otolaryngology
DX: H90.3 Sensorineural hearing loss, bilateral (principal)
CPT/HCPCS: 92557; 92567

== ENCOUNTER 2024-10-27 02:40 | Day surgery (SDC) | payer MEDICARE, BC, SELFPAY ==
[2024-10-26 16:03] VITALS: BMI 36.3
[2024-10-27] VITALS (21 sets, daily range): BP systolic 142–189; BP diastolic 59–99; PULSE 60–69; RESP 16–28; TEMP 36.4; O2SAT 97–100; BMI 34.5
--- OUTSIDE RECORDS SUMMARY | 2024-10-27 02:43 | XMS_ITS | Encounter Summary ---
Author Organization [facility] Address [address] [place] [address] Care Team Providers Care Labor Relations Manager Name Role Phone Unavailable Primary Care Provider Unavailabl e Encounter Details Date Type Department Care Team (Late st Contact Info) Description 11/03/2019 Lab Requisition [facility] DermPath Lab [address] [facility] [place] [address] Servando Cuellar MD [address] [place] [address] Social History Tobacco Use Types Packs/Day Years Used Date Smoking Tobacco: Never Assessed Sex and Gender Information Value Date Recorded Sex Assigned at Not on file 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 Gender Identity Not on file Sexual Orientation Not on file documented as of this encounter Plan of Treatment Not on file documented as of this encounter Procedures Procedure Name Priority Date/Time Associated Diagnosis Comments DERMATOPATHOLOGY Routine 11/02/2019 12:0 0 AM CDT documented in this encounter Results * DERMATOPATHOLOGY (11/02/2019 12:00 AM CDT) Case Report Dermatopathology Report Case: [id number] Authorizing Provider: Servando Cuellar MD Collected: 11/02/2019 12:00 AM Ordering Location: [facility]erm[facility] Lab Received: 11/03/2019 12:37 PM Pathologist: Anisa Wilson MD Specimen: Skin, left lower lat marjorie lip border 0 12:33 PM CDT DERMATOPATHOLOGY LABORATORY Final Diagnosis Specimen A. 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 0 12:33 PM CDT DERMATOPATHOLOGY LABORATORY Gross Description Specimen A: Received is one formalin filled container labeled with the patient's name and designated left lower lat marjorie lip border. The specimen consists of a shave biopsy measuring [id number], bisected. Jar 0. 0 12:33 PM CDT [...] characteristic determined by the Dermatopathology Laboratory at [facility], directed by Dr. Johnson Souza. These tests need not be, and therefore are not, approved by the [place] Food and Drug Administration. The tests are used for clinical purposes. Billing Codes Specimen Charges Stain Charges 61937 1 0 12:33 PM CDT DERMATOPATHOLOGY LABORATORY Embedded Images 0 12:33 PM CDT DERMATOPATHOLOGY LABORATORY Pathology/Cytolog y TISSUE SPECIMEN FROM SKIN / Unknown 11/02/2019 11/03/2019 12:37 PM CDT Servando Cuellar MD LAB - PATHOLOGY/CYTOLOGY ORD ERABLES Final Result DERMATOPATHOLOGY LABORATORY [facility] - Department of Dermatology [employer] [address] [place] [address] documented in this encounter Visit Diagnoses Not on filedocumented in this encounter
--- OUTSIDE RECORDS SUMMARY | 2024-10-27 02:43 | XMS_ITS | Referral Summary ---
Author Organization [facility] Address [address] [place] [phone] Care Team Providers Care Black Belt Name Role Phone Osmany Dalton DO Primary Care Provider [phone]- [phone] Encounters Date Type Department Care Team Description 10/21/2024 Telephone [facility] Medical [facility] Cardiology [address] [place] [address] Osmani Stock MD 10/21/2024 2:15 PM CDT Office Visit [facility] Cardiology [address] [place] [address] Osmani Stock MD Coronary artery disease involving resighini coronary artery of resighini heart without angina pectoris (Primary Dx); Essential hypertension; Hyperlipidemia LDL goal <70; History of supraventricular tachycardia; PULLIAM (dyspnea on exertion) from Last 3 Months Allergies Active Allergy Reactions Criticality Noted Date Comments Penicillins Swelling,Blisters High 02/28/2022 Medications levothyroxine (SYNTHROID) 100 mcg tablet Take 1 tablet (100 mcg total) by mouth daily 2 Active PARoxetine (PAXIL) 40 mg tablet Take 1 tablet (40 mg total) by mouth daily 2 Active finasteride (PROSCAR) 5 mg tablet Take 1 tablet (5 mg total) by mouth daily 2 Active triamterene-hy droCHLOROthiaz juancarlos 37.5-25 mg per tablet Take 1 tablet/capsule [...] mg total) by mouth daily Active vitamins A,C,E-zinc-messenger copy per (ICAPS) 14,320-226-200 irhz-ru-sgay capsule Take by mouth Active albuterol HFA (PROVENTIL HFA,VENTOLIN HFA,PROAIR HFA) 90 mcg/actuation inhaler Inhale 2 puffs every 6 (six) hours as needed for wheezing Active glucosamine-ch ondroitin 500-400 mg capsule 1 capsule Active furosemide (LASIX) 20 mg tabletIndicati ons:Bilateral lower extremity edema Take 1 tablet (20 mg total) by mouth daily as needed (swelling) 30 tablet 1 4 Active nitroglycerin (NITROSTAT) 0.4 mg SL tabletIndicati ons:Coronary artery disease involving res[place]ini coronary artery of resighini heart without angina pectoris DISSOLVE ONE TABLET UNDER TONGUE NEEDED FOR CHEST PAIN EVERY 5 MINUTES FOR UP TO 3 DOSES TOTAL. 25 tablet 3 4 Active budesonide-for moteroL (SYMBICORT) 160-4.5 mcg/actuation inhaler Inhale 1 puff 2 (two) times a day 4 Active amLODIPine (NORVASC) 5 mg tablet Take 1 tablet (5 mg total) by mouth daily 4 Active rosuvastatin (CRESTOR) 40 mg tablet TAKE 1 TABLET(40 MG) BY MOUTH DAILY 90 tablet 4 Active fluticasone propionate (FLONASE) 50 mcg/actuation nasal spray Administer 2 sprays into each nostril 2 (two) times a day 5 Active ticagrelor (BRILINTA) 60 mg tablet Take 1 tablet (60 mg total) by mouth every 12 (twelve) hours 60 tablet 11 5 Active ticagrelor (BRILINTA) 60 mg tabletIndicati ons:Coronary artery disease involving [place] coronary artery of resighini heart without angina pectoris Take 1 tablet (60 mg total) by mouth 2 (two) times a day 60 tablet 11 4 10/22/19 25 Discontinu ed(Therapy completed) Active Problems Problem Noted Date Diagnosed Date PULLIAM (dyspnea on exertion) 12/31/2023 Bilateral lower extremity edema 07/15/2023 Primary hypertension 04/29/2023 Other chest pain 04/29/2023 Lipid screening 04/29/2023 Morbid (severe) obesity due to excess calories 1 06/29/2022 Chronic obstructive pulmonary disease 07/04/2022 Hyperlipidemia LDL goal <70 07/04/2022 Essential hypertension 07/04/2022 History of supraventricular tachycardia 07/04/19 Coronary artery disease invo lving resighini coronary artery of resighini heart without angina pectoris 07/04/2022 Social History [...] on file 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 Gender Identity Not on file Sexual Orientation Not on file Last Filed Vital Signs Vital Sign Reading Time Taken Comments Blood Pressure 110/80 10/21/2024 2:18 PM CDT Pulse 75 10/21/2024 2:18 PM CDT Temperature - - Respiratory Rate 16 02/10/2024 10:31 AM CDT Oxygen Saturation 93% 10/21/2024 2:18 PM CDT Inhaled Oxygen Concentration - - Weight 127.5 kg (281 lb) 10/21/2024 2:18 PM CDT Height 185.4 cm (6' 1 ) 10/21/2024 2:18 PM CDT Body Mass Index 37.07 10/21/2024 2:18 PM CDT Plan of Treatment Not on file Insurance MEDICARE [facility] FED[employer]AL MEDICARE [facility] Care Teams Black Belt Relationship Specialty Start Date End Date Osmany Dalton DO PCP - General Internal Medicine 02/01/22
--- OUTSIDE RECORDS SUMMARY | 2024-10-27 02:43 | XMS_ITS | Encounter Summary ---
Author Organization [facility] Address [address] [facility] [place] [address] Care Team Providers Care Change Management Director Name Role Phone Unavailable Primary Care Provider Unavailabl e Encounter Details Date Type Department Care Team (Late st Contact Info) Description 04/22/2018 Lab Requisition [facility] Care DermPath Lab [address] [facility] [place] [address] Servando Cuellar MD [address] [address] Social History Tobacco Use Types Packs/Day Years Used Date Smoking Tobacco: Never Assessed Sex and Gender Information Value Date Recorded Sex Assigned at Not on file 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 Gender Identity Not on file Sexual Orientation Not on file documented as of this encounter Plan of Treatment Not on file documented as of this encounter Procedures Procedure Name Priority Date/Time Associated Diagnosis Comments DERMATOPATHOLOGY Routine 04/21/2018 12:0 0 AM EMBROIDERY PATTERNMAKER documented in this encounter Results * DERMATOPATHOLOGY (04/21/2018 12:00 AM EMBROIDERY PATTERNMAKER) Case Report Dermatopathology Report Case: [id number] Authorizing Provider: Servando Cuellar MD Collected: 04/21/2018 12:00 AM Pathologist: Sherry Keenan MD Received: 04/22/2018 12:16 PM Specimen: Skin, left sideburn 1:03 PM [facility] DERMATOPATHOLOGY LABORATORY Final Diagnosis Specimen A. SKIN, left sideburn: SOLAR LENTIGO (L81.4) 1:03 PM [facility] DERMATOPATHOLOGY LABORATORY at 1303 EMBROIDERY PATTERNMAKER Clinical History R/O ISK 1:03 PM [facility] DERMATOPATHOLOGY LABORATORY Gross Description Specimen A: Received is one formalin filled container labeled with the patient's name and designated left sideburn. The specimen consists of a shave biopsy measuring 9x8x1 mm. Jar 0. 1:03 PM [facility] DERMATOPATHOLOGY LABORATORY Microscopic Description Specimen A. SKIN, left sideburn: There is orthokeratosis. There is a slight increase in epidermal thickness with lentiginous buds of hyperpigmented keratinocytes. The number of melanocytes is only mildly increased. In the dermis, there is basophilic degeneration of elastic fibers. 1:03 PM [facility] DERMATOPATHOLOGY LABORATORY Disclaimer An external and internal positive and negative controls are appropriate for the histochemical, immunohistochemical and immunofluorescence stain(s) in this case (if any), except where stated explicitly. The performance characteristics of the stain(s) cited in this report were developed and its performance characteristic determined by the Dermatopathology Laboratory at [facility]. These tests need not be, and therefore are not, approved by the [place] Food and Drug Administration. The tests are used for clinical purposes. Billing Codes Specimen Charges Stain Charges 45893 1 1:03 PM [facility] DERMATOPATHOLOGY LABORATORY Embedded Images 1:03 PM [facility] DERMATOPATHOLOGY LABORATORY Pathology/Cytolog y TISSUE SPECIMEN FROM SKIN / Unknown 04/21/2018 04/22/2018 12:16 PM [facility] us Servando Cuellar MD LAB - PATHOLOGY/CYTOLOGY ORD ERABLES Final Result DERMATOPATHOLOGY LABORATORY [facility] - Department of Dermatology [address] [place] [address], [facility] [phone] documented in this encounter Visit Diagnoses Not on filedocumented in this encounter
--- OUTSIDE RECORDS SUMMARY | 2024-10-27 02:43 | XMS_ITS | Clinical Summary ---
Author Organization [facility] Address [address] [place] [phone] Care Team Providers Care Cap Blocker Name Role Phone Osmany Dalton DO Primary Care Provider +1- [phone] Allergies Active Allergy Reactions Criticality Noted Date [...] mg total) by mouth daily Active vitamins A,C,E-zinc-naval aircrewman tactical helicopter per (ICAPS) 14,320-226-200 odwx-nd-mkid capsule Take by mouth Active albuterol HFA [...] mg SL tabletIndicati ons:Coronary artery disease involving [place] coronary artery of [place] heart without angina pectoris DISSOLVE ONE TABLET [...] 60 mg tabletIndicati ons:Coronary artery disease involving [place] coronary artery of [place] heart without angina pectoris Take 1 tablet [...] 07/04/19 23 Coronary artery disease invo lving curyung coronary artery of curyung heart without angina pectoris 07/04/2022 Encounters Date Type Department Care Team Description 10/21/2024 2:15 PM CDT Office Visit [facility] Medical [facility] Cardiology [address] [place] [address] Osmani Stock MD Coronary artery disease involving curyung coronary artery of curyung heart without angina pectoris (Primary Dx); Essential hypertension; Hyperlipidemia LDL goal <70; History of supraventricular tachycardia; PULLIAM (dyspnea on exertion) 10/21/2024 Telephone [facility] Cardiology [address] [place] [address] Osmani Stock MD from Last 3 Months Surgical History Surgery Date Site/Laterality Comments CORONARY [...] on file 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 Gender Identity Not on file Sexual Orientation [...] 10/21/2024 2:18 PM CDT Plan of Treatment Health Maintenance Due Date Last Done Comments Depression Screening 1945 Fall Risk Assessment 1945 Hepatitis C Screening 1945 Hepatitis B Screening 1964 Zoster Vaccine (1 of 2) 1996 Abdominal Aortic Aneurysm (A AA) Screen 12/15/2011 Well Visit 65+ 12/15/2011 Covid-19 Vaccine (4 - 2023-2 5 season) 2024 04/28/2021, 09/06/2020, 08/16/2020 DTaP/Tdap/Td Vaccine (3 - Td or Tdap) 08/13/2031 08/12/2021, 11/13/2016 Pneumococcal vaccine 65+ Completed 022, 06/06/2019, 05/08/2011 Influenza Vaccine Completed 03/08/2024, , 03/08/2019, Additional history exists Insurance MEDICARE [facility] Address: [address] [place] [address] MEDICARE [facility] Address: [address] [place] [address] Care Teams Cap Blocker Relationship Specialty Start Date End Date Osmany Dalton DO PCP - General Internal Medicine 02/01/22
--- OUTSIDE RECORDS SUMMARY | 2024-10-27 02:43 | XMS_ITS | Clinical Summary ---
Author Organization [facility] Address [address] [facility] [place] [address] Care Team Providers Care Electronic Typesetting Machine Operator Name Role Phone Unavailable Primary Care Provider Unavailabl e Source Comments [facility],non-owned Affiliates and Associated Physician Practices is amultiple site organization consisting of ambulatory clinics and hospital sitesin [place], [place], [place] and [place]. This disclosure is being madepursuant to the Care Everywhere program and may not contain all information available regarding this patient. 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 Gender Identity Not on file Sexual Orientation [...] patient's age to complete this topic Insurance [facility] Address: [address] [place] [address] MEDICARE MEDICARE [facility] SELF PAY NO INSURANCE Member Subscriber Plan / Payer (Ef fective for All Dates) Name:Mike Quiroga Member ID:Not on file Relation to Subscriber:Not on file Name:MIKE QUIROGA Subscriber ID:Not on file (Home) Address: [address] [place] [address] [place] [address] Payer ID:Not on file Group ID:Not on file Type:Self Pay Address: [facility]
[2024-10-27 09:17] LABS: Basophils Absolute Auto 0.1 K/mm3 (0.0-0.1); Eosinophils Absolute Auto 0.4 K/mm3 (0-0.3); Hematocrit 40.6 % (42.0-52.0); Hemoglobin 13.5 g/dL (14.0-18.0); Immature Granulocyte Absolute 0.01 K/mm3 (0.00-0.031); Immature Granulocyte Percent A 0.2 % (0-0.5); Lymphocytes Absolute Auto 1.25 K/mm3 (0.9-3.2); Mean Corpuscular HGB Conc 33.3 g/dl (32-36); Mean Corpuscular Hemoglobin 30.9 pg (26-34); Mean Corpuscular Volume 92.9 fl (80-100); Mean Platelet Volume 9.2 fl (7.4-10.4); Monocytes Absolute Auto 0.5 K/mm3 (0.1-0.6); Neutrophils Absolute Auto 2.9 K/mm3 (1.3-6.7); Neutrophils Percent Auto 56.8 % (45.5-73.1); Platelet Count Result 223 k/mm3 (150-375); Red Blood Count 4.37 M/mm3 (4.6-6.20); Red Cell Distribution Width 14.4 % (11.5-14.5)
[2024-10-27 09:26] LABS: Anion Gap 7 mmol/L (4-12); Blood Urea Nitrogen 15 mg/dL (9-20); Calcium 8.6 mg/dL (8.4-10.2); Carbon Dioxide 28 mmol/L (22-30); Chloride 106 mmol/L (98-107); Estimated CRCL calculation 110 ml/min; Estimated Glomerular Filt Rate > 60; Glucose 103 mg/dL (65-110); Potassium 3.5 mmol/L (3.4-5.0); Sodium 141 mmol/L (137-145)
--- NOTE | 2024-10-27 10:25 | P.SEDATION_ITS ---
Moderate Sedation Note-Pt Data Patient Data Allergies Allergy/AdvReac Type Severity Reaction Status Date / Time Penicillins Allergy Unknown Rash Verified 10/26/24 16:21 Home Medications ?Medication ?Instructions ?Recorded ?Confirmed ?Type aspirin 81 mg tablet,delayed 81 mg PO DAILY 06/06/19 10/27/24 History release (Adult Low Dose Aspirin) glucosamine sulf dipot 1 cap PO BID 01/31/22 10/26/24 History chlr,msm,chond 550 mg-C 30 mg-karma 1 mg capsule (Glucosamine Chondroitin) ticagrelor 60 mg tablet (Brilinta) 60 mg PO Q12H 02/05/23 10/27/24 History furosemide 20 mg tablet 20 mg PO DAILY PRN edema 08/06/23 10/26/24 History inhalational spacing device #1 ea 10/27/23 10/26/24 Rx (Aerochamber MV spacer) enalapril maleate 20 mg tablet 20 mg PO DAILY #180 tabs 02/23/24 10/27/24 Rx cyclobenzaprine 5 mg tablet 5 - 10 mg (1 - 2 x 5 mg) PO QHS 05/03/24 10/26/24 Rx PRN muscle spasm #30 tabs budesonide-formoterol HFA 160 1 inh inhalation BID #10.2 grams 05/10/24 10/26/24 Rx mcg-4.5 mcg/actuation aerosol inhaler (Symbicort) paroxetine HCl 40 mg tablet 40 mg PO DAILY #90 tabs 05/23/24 10/26/24 Rx tamsulosin 0.4 mg capsule See Rx Instructions .Route 07/12/24 10/26/24 Rx .COMPLEX #90 caps rosuvastatin 40 mg tablet See Rx Instructions .Route 08/01/24 10/26/24 Rx .COMPLEX #90 tabs levothyroxine 100 mcg tablet See Rx Instructions .Route 09/20/24 10/26/24 Rx .COMPLEX #90 tabs triamterene 37.5 See Rx Instructions .Route 09/20/24 10/26/24 Rx mg-hydrochlorothiazide 25 mg tablet .COMPLEX #90 tabs finasteride 5 mg tablet See Rx Instructions .Route 09/26/24 10/26/24 Rx .COMPLEX #90 tabs fluticasone propionate 50 2 spray intranasal BID #16 mL 10/07/24 10/26/24 Rx mcg/actuation nasal spray,suspension (Flonase Allergy Relief) nitroglycerin 0.4 mg sublingual mg sublingual 10/07/24 10/07/24 History tablet Current Medications: Active Medications Sodium Chloride (Normal Saline Iv) 500 mls @ 100 mls/hr IV CONT .Q5H MARY Sedation/Anesthesia: No previous sedation/anesthesia problems (including family history). [facility] Past Medical History Medical History Dyspnea on exertion CEZAR (acute kidney injury) History of kidney stones Depression with anxiety Chronic obstructive pulmonary disease Cholecystectomy planned Supraventricular tachycardia History of measles, mumps, or rubella Hernia History of fracture Chronic bronchitis Hypertension Hyperlipidemia Hypothyroidism Cervical radiculopathy BPH (benign prostatic hyperplasia) Surgical History Surgical History History of extraction of renal calculus H/O cardiac radiofrequency ablation Hx of cholecystectomy S/P catheter ablation of slow pathway Family History Family History Father Laryngeal cancer Heart disease Pulmonary disease Heart attack Daughter Generalized anxiety disorder Endometriosis 2 daughter Social History Social History Social History: The patient stated that he smokes cigarettes for about a year and of half when he was in the . He has not smoked since then. Patient has 2 children. He is and lives with his . 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 He denies any alcohol marijuana or illicit drugs. 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 Code status full code Smoking status: Former smoker Tobacco type: cigarettes Second hand tobacco smoke exposure: Yes Alcohol intake: former Substance use: never Do You Feel Safe in your Home?: Yes Lack of Transportation: No Lack of Food: Never True Current Housing: I Have Housing Concerned About Future Housing: No Difficulty Paying Gas/Electric Bills: No Difficulty Paying for Meds: No Currently Unemployed: No Education: High School Diploma/GED Difficulty w/ Childcare or Family Care: No Living arrangements: with family Spiritual care concerns: No Mod Sed Physical Exam Physical Exam Pre Procedural Exam: Normal: Heart Size, Heart Rate and Heart Rhythm Hours since solid foods: 12 Hours since liquid intake: 12 Mallampati Classification: class III Internal Medicine - PN: Obj Da Vital Signs Vital Signs: Vital Signs - 24 hr 10/27/24 09:00 Temperature 36.4 C Pulse Rate 69 Respiratory Rate 28 H Blood Pressure 189/90 H Pulse Oximetry 97 Oxygen Delivery Room Air Meds/Results Medications: Active Medications Generic Name Dose Route Start Last Admin Trade Name Freq PRN Reason Stop Dose Admin Sodium Chloride 500 mls @ 100 mls/hr 10/27/24 10:00 Normal Saline Iv IV CONT .Q5H MARY Labs 10/27/24 09:03 10/27/24 09:03 Labs: Laboratory Results - last 24 hr 10/27/24 09:03 WBC 5.0 RBC 4.37 L Hgb 13.5 L Hct 40.6 L MCV 92.9 MCH 30.9 MCHC 33.3 RDW 14.4 Plt Count 223 MPV 9.2 Immature Gran % (Auto) 0.2 Neut % (Auto) 56.8 Lymph % (Auto) 25.0 [place] % (Auto) 9.0 H Eos % (Auto) 8.0 H Baso % (Auto) 1.0 Lymph # (Auto) 1.25 [place] # (Auto) 0.5 Eos # (Auto) 0.4 H Baso # (Auto) 0.1 Abs Immat Gran (auto) 0.01 Absolute Neuts (auto) 2.9 Absolute Nucleated RBC 0.000 Nucleated RBC % 0.0 Sodium 141 Potassium 3.5 Chloride 106 Carbon Dioxide 28 Anion Gap 7 BUN 15 Creatinine 0.65 L Estim Creat Clear Calc 110 Estimated GFR > 60 Glucose 103 Calcium 8.6 ASA Classification/Sedation ASA Classification/Sedation ASA Class: III Emergent: No Risks: Risks, benefits and alternatives explained and patient/family accepted plan for sedation. Patient re-evaluated immediately prior to sedation.
--- NOTE | 2024-10-27 10:25 | WPDHPUPDATE1 ---
History and Physical Update Update Date/Time: 10/27/24 10:20 History and Physical has been reviewed, including an updated exam of the patient. There are NO changes in the patient's condition. Risks, benefits, and alternatives have been discussed and questions answered. Patient agrees to proceed with procedure.
--- NOTE | 2024-10-27 11:31 | WPDCARDPROC ---
Cardiac Cath Procedure Note Date of procedure:: 10/27/24 Performing physician:: CATHETERIZATION LABORATORY REPORT Procedure Date: 10/27/2024 Referring Physician: Dr. Stock Anesthesia: Versed and Fentanyl were ordered and given in my presence at 1035, procedure ended at 1125. Supervision of nurse, Liana Gordon, monitored moderate sedation with 2mg Versed and 200mcg Fentanyl was provided for 50 minutes. Pre-op Diagnosis: Exertional Dyspnea Post-op Diagnosis: Exertional Dyspnea Procedure(s): Left heart catheterization with coronary angiography. Right subclavian angiogram. Aortogram. Access Site: Right radial artery. Right common femoral artery. Brief History and Clinical Indications: 78-year-old man with CAD status post PCI to the proximal LAD and dilated aortic root was found to have exertional dyspnea here to define his coronary anatomy. All risks, benefits and alternatives to left heart catheterization with or without percutaneous coronary intervention was discussed at length with the patient. Risk of complications including but not limited to bleeding, infection, arrhythmia, stroke, worsening kidney function, blood loss, groin hematoma, limb loss, emergency coronary artery bypass grafting, and even were discussed with the patient and all questions were answered. The patient understood and wished to proceed. Time out called, patient name, date of , medical record number, allergies, procedure performed, identify Trust Administrative Assistant, patient and staff member concurred with accurate data, procedure carried on. Findings: LEFT HEART CATHETERIZATION FINDINGS: 1. Left main: The left main coronary artery is widely patent without any significant obstructive disease. 2. Left anterior descending: The LAD and the diagonal branches have mild luminal irregularities without any significant obstructive angiographic disease. There is a patent stent in the proximal LAD. 3. Left circumflex: The left circumflex artery is a large dominant vessel. The left circumflex, its main marginal branches, and the left PDA have luminal irregularities without any significant obstructive angiographic disease. 4. Right coronary artery: The RCA is a small non dominant vessel with mild nonobstructive disease. 5. Left ventricle: A. End-diastolic pressure 25 mmHg. B. LV gram deferred. C. No significant gradient across aortic valve on catheter pullback. 6. Opening AO pressure 170/80 and closing AO pressure 180/90 Description of Procedure: Informed consent signed and placed in the chart. Patient transferred to casting house laborer room. Prepped and draped in usual sterile fashion. 2% lidocaine injected subcutaneously in right wrist area. 22-gauge venipuncture catheter used to access the right radial artery with the Seldinger technique. 6-FR slender sheath placed in right radial artery. Nitroglycerin 200mcg, Verapamil 2.5mg, and Heparin 5000U was given intraarterial through the sheath. J wire advanced under fluoroscopy and was unable to be advanced past the right subclavian artery into the ascending aorta. We exchanged the J wire for a Wholey wire however was still unable to gain access to the ascending aorta. We took multiple subclavian angiogram with no detectable contrast in the aorta. At this time, we converted to femoral approach. 2% lidocaine injected subcutaneously in the right groin. 22-gauge micropuncture needle was advanced into the right common femoral artery under ultrasound and fluoroscopy guidance and the micropuncture sheath was advanced into the vessel and exchanged out for a 5F Prelude Sheath. The J wire was then advanced into the aortic arch where it easily went into the subclavian artery suggesting that the difficulty from radial approach likely secondary to significant tortuosity rather then stenosis. 5F JL4 diagnostic catheter was unable to engage the LMCA and exchanged out for a JL5 diagnostic catheter which did engaged Left Main Coronary Artery. 5F JR4 diagnostic catheter engaged Right Coronary Artery Multiple orthogonal angiogram obtained and reviewed 5F Pigtail diagnostic catheter crossed aortic valve to obtain LVEDP, LV angiogram deferred. The 5F Pigtail diagnostic catheter was used to assess the patency of the right subclavian artery. Hemostasis was achieved by application of TR band. Assessment: Patent LAD stent. Mild nonobstructive CAD. Dilated aortic root. Post Operative Condition: Stable No significant blood loss Disposition: Home Plan: Continue aggressive medical management and risk factor modification. Symptoms unrelated to coronary etiologies. Ok Schumacher Interventional Cardiology
[2024-10-27] MEDS: SODIUM CHLORIDE 0.9% IV 1,000 ML 125 ML IV CONT (12:54)
== END 2024-10-27 16:30 | disposition home or self-care (01) ==
PROVIDERS: PCP Internal Medicine; Visit Provider Internal Medicine
PROC: 4A023N7 Measurement of Cardiac Sampling and Pressure, Left Heart, Percutaneous Approach (ICD-10-PCS; CPT 93452; principal; 2024-10-27 10:00)
PROC: (CPT 36140; 2024-10-27 10:00)
PROC: (CPT 93567; 2024-10-27 10:00)
DX: R06.09 Other forms of dyspnea (principal); I25.10 Atherosclerotic heart disease of native coronary artery without angina pectoris; I77.810 Thoracic aortic ectasia; Z95.5 Presence of coronary angioplasty implant and graft; Z87.891 Personal history of nicotine dependence
CPT/HCPCS: 36140; 36415; 80048; 85025; 93458; 93567; C1760; C1769; C1887; C1894; G0269; J0360; J1644; J2003; J2250; J2305; J3010; J7030; J7040

== ENCOUNTER 2025-01-30 11:49 | Outpatient (CLI) | payer MEDICARE, BC, SELFPAY ==
--- OUTSIDE RECORDS SUMMARY | 2025-01-30 12:18 | XMS_ITS | Clinical Summary ---
Author Organization [facility] Address [address] [place] [address] Care Team Providers Care Software Packager Name Role Phone Unavailable Primary Care Provider Unavailabl e Source Comments [facility],non-owned Affiliates and Associated Physician Practices is amultiple site organization consisting of ambulatory clinics and hospital sitesin [place], [place], [place] and [place]. This disclosure is being madepursuant to the Care Everywhere program and may not contain all information available regarding this patient. 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 Gender Identity Not on file Sexual Orientation [...] season) 2024 DEPRESSION SCREENING 06/08/2024 INFLUENZA VACCINE (#1) 2025 HEPATITIS B VACCINE Aged Out No [...] topic Insurance [facility] MEDICARE MEDICARE [facility] SELF PAY NO INSURANCE Member Subscriber Plan / Payer (Ef fective for All Dates) Name:Mike Quiroga Member ID:Not on file Relation to Subscriber:Not on file Name:MIKE QUIROGA Subscriber ID:Not on file (Home) Address: [address] [place] [address] [place] [address] Payer ID:Not on file Group ID:Not on file Type:Self Pay Address: [facility]
--- OUTSIDE RECORDS SUMMARY | 2025-01-30 12:18 | XMS_ITS | Encounter Summary ---
Author Organization [facility] Address [address] [place] [address] Care Team Providers Care Cleaning Manager Name Role Phone Unavailable Primary Care Provider Unavailabl e Encounter Details Date Type Department Care Team (Late st Contact Info) Description 11/03/2019 Lab Requisition [facility] DermPath Lab [address] [facility] [place] [place] [address] Servando Cuellar MD [address] [place] [address] Social History Tobacco Use Types Packs/Day Years Used Date Smoking Tobacco: Never Assessed Sex and Gender Information Value Date Recorded Sex Assigned at Not on file 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 Gender Identity Not on file Sexual Orientation Not on file documented as of this encounter Plan of Treatment Not on file documented as of this encounter Procedures Procedure Name Priority Date/Time Associated Diagnosis Comments DERMATOPATHOLOGY Routine 11/02/2019 12:0 0 AM CDT documented in this encounter Results * DERMATOPATHOLOGY (11/02/2019 12:00 AM CDT) Case Report Dermatopathology Report Case: [id number] Authorizing Provider: Servando Cuellar MD Collected: 11/02/2019 12:00 AM Ordering Location: [facility] DermPath Lab Received: 11/03/2019 12:37 PM Pathologist: [...] specimen consists of a shave biopsy measuring [id number], bisected. Jar 0. 0 12:33 PM CDT [...] characteristic determined by the Dermatopathology Laboratory at [facility], directed by Dr. Johnson Souza. These tests need not be, and therefore are not, approved by the [place] Food and Drug Administration. The tests are used for clinical purposes. Billing Codes Specimen Charges Stain Charges 05652 1 0 12:33 PM CDT DERMATOPATHOLOGY LABORATORY Embedded Images 0 12:33 PM CDT DERMATOPATHOLOGY LABORATORY Pathology/Cytolog y TISSUE SPECIMEN FROM SKIN / Unknown 11/02/2019 11/03/2019 12:37 PM CDT Servando Cuellar MD LAB - PATHOLOGY/CYTOLOGY ORD ERABLES Final Result DERMATOPATHOLOGY LABORATORY [facility] - Department of Dermatology [facility] [address] [place] [address] documented in this encounter Visit Diagnoses Not on filedocumented in this encounter
--- OUTSIDE RECORDS SUMMARY | 2025-01-30 12:18 | XMS_ITS | Clinical Summary ---
Author Organization [facility] [place] Address [address] [place] [id number] Care Team Providers Care Upholstery Department Supervisor Name Role Phone Osmany Dalton DO Primary Care Provider [phone]- [phone] Allergies Active Allergy Reactions Criticality Noted Date [...] daily Active vitamins A,C,E-zinc-joey er (ICAPS) [phone] efna-sn-hzyx capsule Take by mouth Active albuterol HFA (PROVENTIL HFA,VENTOLIN HFA,PROAIR HFA) 90 mcg/actuation inhaler Inhale 2 puffs every 6 (six) hours as needed for wheezing Active glucosamine-cho ndroitin 500-400 mg capsule 1 capsule Active nitroglycerin (NITROSTAT) 0.4 mg SL tabletIndicatio ns:Coronary artery disease involving [place] coronary artery of [place] heart without angina pectoris DISSOLVE ONE TABLET UNDER TONGUE NEEDED FOR CHEST PAIN EVERY 5 MINUTES FOR UP TO 3 DOSES TOTAL. 25 tablet 3 4 Active budesonide-form oteroL (SYMBICORT) 160-4.5 mcg/actuation inhaler Inhale [...] 2 (two) times a day 5 Active furosemide (LASIX) 20 mg tabletIndicatio ns:Bilateral lower extremity edema TAKE 1 TABLET(20 MG) BY MOUTH DAILY NEEDED FOR SWELLING 30 tablet 1 5 Active Active Problems Problem Noted Date Diagnosed Date PULLIAM (dyspnea on exertion) 12/31/2023 Bilateral lower extremity edema 07/15/2023 Primary hypertension 04/29/2023 Other chest pain 04/29/2023 Lipid screening 04/29/2023 Morbid (severe) obesity due to excess calories 1 06/29/2022 Chronic obstructive pulmonary disease 07/04/2022 Hyperlipidemia LDL goal <70 07/04/2022 Essential hypertension 07/04/2022 History of supraventricular tachycardia 07/04/19 23 Coronary artery disease invo lving [place] coronary artery of [place] heart without angina pectoris 07/04/2022 Encounters Date Type Department Care Team Description 12/02/2024 2:00 PM CDT Office Visit [facility] Cardiology [address] [place] [address] Lexie Jacobson NP Coronary artery disease involving [place] coronary artery of [place] heart without angina pectoris (Primary Dx); Lipid screening; Status post coronary angiogram; PULLIAM (dyspnea on exertion); Second degree AV block; History of supraventricular tachycardia; Essential hypertension 11/02/2024 Orders Only [facility] Cardiology [address] [place] [address] Ok Schumacher MD from Last 3 Months Surgical History [...] on file 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 Gender Identity Not on file Sexual Orientation Not on file Obstetrics History Last Filed Vital Signs Vital Sign Reading Time Taken Comments Blood Pressure 140/80 12/02/2024 2:29 PM CDT Pulse 89 12/02/2024 2:11 PM CDT Temperature - - Respiratory Rate 16 02/10/2024 10:31 AM CDT Oxygen Saturation 95% 12/02/2024 2:11 PM CDT Inhaled Oxygen Concentration - - Weight 127 kg (280 lb) 12/02/2024 2:11 PM CDT Height 185.4 cm (6' 1) 12/02/2024 2:11 PM CDT Body Mass Index 36.94 12/02/2024 2:11 PM CDT Plan of Treatment Health Maintenance Due Date Last Done Comments Depression Screening 1945 Fall Risk Assessment 1945 Hepatitis C Screening 1945 Hepatitis B Screening 1964 Zoster Vaccine (1 of 2) 1996 Abdominal Aortic Aneurysm (A AA) Screen 12/15/2011 Well Visit 65+ 12/15/2011 Covid-19 Vaccine (2023-2 5 season) 2024 04/28/2021, 09/06/2020, 08/16/2020 Influenza Vaccine (#1) 2025 4, 03/18/2022, 03/08/2019, Additional history exists DTaP/Tdap/Td Vaccine (3 - Td or Tdap) 08/13/2031 08/12/2021, 11/13/2016 Pneumococcal vaccine 65+ Completed 022, 06/06/2019, 05/08/2011 Procedures Procedure Name Priority Date/Time Associated Diagnosis Comments POCT LIPID PANEL Routine 12/02/2024 2:16 PM CDT Lipid screening from Last 3 Months Results * POCT lipid panel (12/02/2024 2:16 PM CDT) Cholesterol, POC 155 <200 MG/DL HDL, POC 73 >=40 mg/dL Triglycerides, POC 73 <=149 mg/dL LDL Cholesterol POC 67 <=129 mg/dL Chol/HDL Ratio, POC 0.9 NONE Non-HDL Cholesterol, POC 82 NONE mg/dL Cholesterol Total, POC 155 30 - 199 mg/dL Capillary blood 12/02/2024 2 :16 PM CDT Lexie Jacobson NP POINT OF CARE TEST ORDERA BLES Final Result from Last 3 Months Insurance MEDICARE [facility] [place] [address] MEDICARE [facility] Address: [facility] [address] [place] [address] [facility] Care Teams Upholstery Department Supervisor Relationship Specialty Start Date End Date Osmany Dalton DO PCP - General Internal Medicine 02/01/22
--- OUTSIDE RECORDS SUMMARY | 2025-01-30 12:18 | XMS_ITS | Encounter Summary ---
Author Organization [facility] Address [address] [place] [address] Care Team Providers Care Instructor Of Spanish Name Role Phone Unavailable Primary Care Provider Unavailabl e Encounter Details Date Type Department Care Team (Late st Contact Info) Description 04/22/2018 Lab Requisition [facility] Care DermPath Lab [address] [facility] [place] [address] Servando Cuellar MD [address] [place] [address] Social History Tobacco Use Types Packs/Day Years Used Date Smoking Tobacco: Never Assessed Sex and Gender Information Value Date Recorded Sex Assigned at Not on file 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 Gender Identity Not on file Sexual Orientation Not on file documented as of this encounter Plan of Treatment Not on file documented as of this encounter Procedures Procedure Name Priority Date/Time Associated Diagnosis Comments DERMATOPATHOLOGY Routine 04/21/2018 12:0 0 AM FLOWER CUTTER documented in this encounter Results * DERMATOPATHOLOGY (04/21/2018 12:00 AM FLOWER CUTTER) Case Report Dermatopathology Report Case: [id number] Authorizing Provider: Servando Cuellar MD Collected: 04/21/2018 12:00 AM Pathologist: Sherry Keenan MD Received: 04/22/2018 12:16 PM Specimen: Skin, left sideburn 1:03 PM [facility] DERMATOPATHOLOGY LABORATORY Final Diagnosis Specimen A. SKIN, left sideburn: SOLAR LENTIGO (L81.4) 1:03 PM [facility] DERMATOPATHOLOGY LABORATORY at [address] FLOWER CUTTER Clinical History R/O ISK 1:03 PM [facility] DERMATOPATHOLOGY LABORATORY Gross Description Specimen A: Received is one formalin filled container labeled with the patient's name and designated left sideburn. The specimen consists of a shave biopsy measuring 9x8x1 mm. Jar 0. 1:03 PM [facility] DERMATOPATHOLOGY LABORATORY Microscopic Description Specimen A. SKIN, left sideburn: There is orthokeratosis. There is a slight increase in epidermal thickness with lentiginous buds of hyperpigmented keratinocytes. The number of melanocytes is only mildly increased. In the dermis, there is basophilic degeneration of elastic fibers. 1:03 PM [facility] DERMATOPATHOLOGY LABORATORY Disclaimer An external and internal positive and negative controls are appropriate for the histochemical, immunohistochemical and immunofluorescence stain(s) in this case (if any), except where stated explicitly. The performance characteristics of the stain(s) cited in this report were developed and its performance characteristic determined by the Dermatopathology Laboratory at [facility]. These tests need not be, and therefore are not, approved by the [place] Food and Drug Administration. The tests are used for clinical purposes. Billing Codes Specimen Charges Stain Charges 19882 1 1:03 PM [facility] DERMATOPATHOLOGY LABORATORY Embedded Images 1:03 PM [facility] DERMATOPATHOLOGY LABORATORY Pathology/Cytolog y TISSUE SPECIMEN FROM SKIN / Unknown 04/21/2018 04/22/2018 12:16 PM [facility] us Servando Cuellar MD LAB - PATHOLOGY/CYTOLOGY ORD ERABLES Final Result DERMATOPATHOLOGY LABORATORY [facility] - Department of Dermatology [address] [place] [address], [facility] [phone] documented in this encounter Visit Diagnoses Not on filedocumented in this encounter
--- OUTSIDE RECORDS SUMMARY | 2025-01-30 12:18 | XMS_ITS | Encounter Summary ---
Author Organization [facility] Healthcare Address [address] [place] [address] Care Team Providers Care Vehicle Check In Clerk Name Role Phone Osmany Dalton DO Primary Care Provider +1- [phone] Encounter Details Date Type Department Care Team (Late st Contact Info) Description 10/27/2024 Orders Only [facility] Health Information Management [address] [place] [address] Scanning, Provider Social History Tobacco Use Types Packs/Day Years Used Date Smoking Tobacco: Former Cigarettes Q uit: 06/27/1969 Smokeless Tobacco: Never AUDIT-C Answer Date Recorded Q1: How often [...] on file 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 Gender Identity Not on file Sexual Orientation Not on file documented as of this encounter Plan of Treatment Not on file documented as of this encounter Procedures Procedure Name Priority Date/Time Associated Diagnosis Comments CARDIOLOGY DOCUMENT SCAN 10/27/2024 documented in this encounter Results * Cardiology Document Scan (10/27/2024) Anatomical Region Laterality Modality Other us Provider Scanning CV CARDIAC SERVICES PROCEDURES Final Result documented in this encounter Visit Diagnoses Not on filedocumented in this encounter Care Teams Vehicle Check In Clerk Relationship Specialty Start Date End Date Osmany Dalton, PCP - General Internal Medicine 02/01/22 documented as of this encounter
[2025-01-30 14:36] LABS: Hematocrit 44.2 % (42.0-52.0); Hemoglobin 14.3 g/dL (14.0-18.0); Immature Granulocyte Percent A 0.2 % (0-0.5); Lymphocytes Absolute Auto 0.99 K/mm3 (0.9-3.2); Mean Corpuscular HGB Conc 32.4 g/dl (32-36); Mean Corpuscular Hemoglobin 30.6 pg (26-34); Mean Corpuscular Volume 94.4 fl (80-100); Nucleated Red Blood Cells Absolute Auto 0.000 K/mm3 (0.0-0.012); Nucleated Red Blood Cells Perc 0.0 % (0.0-0.2); Platelet Count Result 219 k/mm3 (150-375); Red Blood Count 4.68 M/mm3 (4.6-6.20); White Blood Count 5.5 K/mm3 (4.5-10.0)
[2025-01-30 15:16] LABS: Alanine Aminotransferase 27 U/L (6-50); Albumin Level 4.2 g/dL (3.5-5.1); Alkaline Phosphatase 57 U/L (38-126); Anion Gap 7 mmol/L (4-12); Aspartate Amino Transferase 60 U/L (17-59); Bilirubin,Total 0.7 mg/dL (0.2-1.3); Blood Urea Nitrogen 19 mg/dL (9-20); Calcium 9.2 mg/dL (8.4-10.2); Carbon Dioxide 28 mmol/L (22-30); Chloride 102 mmol/L (98-107); Estimated Glomerular Filt Rate > 60; Glucose 97 mg/dL (65-110); Potassium 3.6 mmol/L (3.4-5.0); Sodium 137 mmol/L (137-145); Total Protein 7.4 g/dL (6.3-8.2)
[2025-01-30 16:50] LABS: Ferritin 20.10 ng/mL (11.1-264)
== END 2025-01-30 11:50 | disposition home or self-care (01) ==
LOC: ANHGOSHLAB 11:50
PROVIDERS: PCP Internal Medicine; Visit Provider Internal Medicine
DX: D64.9 Anemia, unspecified (principal); R74.8 Abnormal levels of other serum enzymes; I27.20 Pulmonary hypertension, unspecified; R06.09 Other forms of dyspnea
CPT/HCPCS: 36415; 80053; 82103; 82728; 85025

== ENCOUNTER 2025-02-13 09:57 | Outpatient (CLI) | payer MEDICARE, BC, SELFPAY ==
--- NOTE | ~2025-02-13 | US_ITS ---
EXAMINATION: US abdomen limited DATE: 02/13/2025 10:23 INDICATION: Hepatomegaly, not elsewhere classified. TECHNIQUE: Multiple grayscale and Doppler ultrasound images of the abdomen were obtained. COMPARISON: Ultrasound 05/26/2024 FINDINGS: The visualized portions of the head and body of the pancreas are normal. There is an 8 mm hyperechoic mass in the liver. There is normal flow in main portal vein. The gallbladder is absent. The common duct is normal and measures 5 mm. IMPRESSION: 1. Stable 8 mm hyperechoic mass in the liver, likely a benign mass such as a hemangioma. Reviewed, dictated and finalized at location E. IMPRESSION: 1. Stable 8 mm hyperechoic mass in the liver, likely a benign mass such as a he mangioma.
== END 2025-02-13 09:58 | disposition home or self-care (01) ==
LOC: MICIMG 09:58
PROVIDERS: PCP Internal Medicine; Visit Provider Internal Medicine
DX: R16.0 Hepatomegaly, not elsewhere classified (principal); R74.8 Abnormal levels of other serum enzymes
CPT/HCPCS: 76705

== ENCOUNTER 2025-05-09 13:49 | Outpatient (CLI) | payer MEDICARE, BC, SELFPAY ==
--- OUTSIDE RECORDS SUMMARY | 2025-05-09 14:55 | XMS_ITS | Encounter Summary ---
Author Organization 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
--- OUTSIDE RECORDS SUMMARY | 2025-05-09 14:55 | XMS_ITS | Encounter Summary ---
Author Organization [facility] Address [address] [facility] [address] Care Team Providers Care Spanish Instructor Name Role Phone Unavailable Primary Care Provider Unavailabl e Encounter Details Date Type Department Care Team (Late st Contact Info) Description 04/22/2018 Lab Requisition [facility] Care DermPath Lab [address] [place] [address] Servando Cuellar MD [address] [address] Social History Tobacco Use Types Packs/Day Years Used Date Smoking Tobacco: Never Assessed Sex and Gender Information Value Date Recorded Sex Assigned at Not on file 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 Gender Identity Not on file Sexual Orientation Not on file documented as of this encounter Plan of Treatment Not on file documented as of this encounter Procedures Procedure Name Priority Date/Time Associated Diagnosis Comments DERMATOPATHOLOGY Routine 04/21/2018 12:0 0 AM RELAY WORKER documented in this encounter Results * DERMATOPATHOLOGY (04/21/2018 12:00 AM RELAY WORKER) Case Report Dermatopathology Report Case: [id number] Authorizing Provider: Servando Cuellar MD Collected: 04/21/2018 12:00 AM Pathologist: Sherry Keenan MD Received: 04/22/2018 12:16 PM Specimen: Skin, left sideburn 1:03 PM [facility] DERMATOPATHOLOGY LABORATORY Final Diagnosis Specimen A. SKIN, left sideburn: SOLAR LENTIGO (L81.4) 1:03 PM [facility] DERMATOPATHOLOGY LABORATORY at [address] RELAY WORKER Clinical History R/O ISK 1:03 PM [facility] DERMATOPATHOLOGY LABORATORY Gross Description Specimen A: Received is one formalin filled container labeled with the patient's name and designated left sideburn. The specimen consists of a shave biopsy measuring 9x8x1 mm. Jar 0. 1:03 PM [facility] DERMATOPATHOLOGY LABORATORY Microscopic Description Specimen A. SKIN, left sideburn: There is orthokeratosis. There is a slight increase in epidermal thickness with lentiginous buds of hyperpigmented keratinocytes. The number of melanocytes is only mildly increased. In the dermis, there is basophilic degeneration of elastic fibers. 1:03 PM [facility] DERMATOPATHOLOGY LABORATORY Disclaimer An external and internal positive and negative controls are appropriate for the histochemical, immunohistochemical and immunofluorescence stain(s) in this case (if any), except where stated explicitly. The performance characteristics of the stain(s) cited in this report were developed and its performance characteristic determined by the Dermatopathology Laboratory at [facility]. These tests need not be, and therefore are not, approved by the [place] Food and Drug Administration. The tests are used for clinical purposes. Billing Codes Specimen Charges Stain Charges 74784 1 1:03 PM [facility] DERMATOPATHOLOGY LABORATORY Embedded Images 1:03 PM [facility] DERMATOPATHOLOGY LABORATORY Pathology/Cytolog y TISSUE SPECIMEN FROM SKIN / Unknown 04/21/2018 04/22/2018 12:16 PM [facility] us Servando Cuellar MD LAB - PATHOLOGY/CYTOLOGY ORD ERABLES Final Result DERMATOPATHOLOGY LABORATORY [facility] - Department of Dermatology [address] [place] [address], [facility] [phone] documented in this encounter Visit Diagnoses Not on filedocumented in this encounter
--- OUTSIDE RECORDS SUMMARY | 2025-05-09 14:55 | XMS_ITS | Clinical Summary ---
Author Organization [facility] Address [address] [place] [id number] Care Team Providers Care Strip Catcher Name Role Phone Osmany Dalton DO Primary Care Provider [phone]- [phone] Allergies Active Allergy Reactions Criticality Noted Date [...] daily Active vitamins A,C,E-zinc-joey er (ICAPS) [phone] dgsa-ib-hqha capsule Take by mouth Active albuterol HFA (PROVENTIL HFA,VENTOLIN HFA,PROAIR HFA) 90 mcg/actuation inhaler Inhale 2 puffs every 6 (six) hours as needed for wheezing Active glucosamine-cho ndroitin 500-400 mg capsule 1 capsule Active nitroglycerin (NITROSTAT) 0.4 mg SL tabletIndicatio ns:Coronary artery disease involving cheesh-na coronary artery of cheesh-na heart without angina pectoris DISSOLVE ONE TABLET [...] FOR SWELLING 30 tablet 1 5 Active famotidine (PEPCID) 20 mg tablet Take 1 tablet (20 mg total) by mouth nightly at bedtime 5 Active empagliflozin (JARDIANCE) 10 mg tablet Take 1 tablet (10 mg total) by mouth daily 90 tablet 1 5 Active Active Problems Problem [...] 07/04/19 23 Coronary artery disease invo lving cheesh-na coronary artery of cheesh-na heart without angina pectoris 07/04/2022 Encounters Date Type Department Care Team Description 05/01/2025 Telephone [facility] Pulmonary at [address] [place] [phone] Hannah Sparks LPN Symbicort 04/24/2025 Telephone [facility] Pulmonary at [address] [place] [phone] Yablonsky/Dr Stock 04/24/2025 Telephone [facility] Cardiology [address] [place] [phone] Gautam Barros MD 04/17/2025 2:45 PM GEAR ROLLER Office Visit [facility] Pulmonary at [address] [place] [phone] Tony Curry MD Moderate persistent asthma without complication (Primary Dx); Coronary artery disease involving cheesh-na coronary artery of cheesh-na heart without angina pectoris; Chronic diastolic heart failure (HCC) 04/03/2025 Telephone [facility] Pulmonary at [address] [place] [phone] Tony Curry MD 03/23/2025 1:00 PM CDT Office Visit [facility] Pulmonary at [address] [place] [phone] Tony Curry MD Dyspnea on exertion (Primary Dx); Coronary artery disease involving cheesh-na coronary artery of cheesh-na heart without angina pectoris; Chronic diastolic heart failure (HCC) 03/23/2025 Telephone [facility] Cardiology [address] [place] [phone] Lexie Jacobson NP 03/09/2025 Documentation [facility] Pulmonary at [address] [place] [phone] Dimple North Scheduling Appointments (HAD MESSAGE FROM [facility] SCHEDULING CALLED PATIENT NO ANSWER LEFT HIM VOICE MAIL TO CALL OUR OFFICE, I WILL CONTINUE CALLING TO GET HIM SCHEDULED PG ) from Last 3 Months Surgical History Surgery Date Site/Laterality Comments CORONARY ANGIOPLASTY CARDIAC CATHETERIZATION Medical History Medical History Date Comments Supraventricular tachycardia Thyroid disease Hypertension BPH (benign prostatic hyperplasia) Depression Anxiety Social History Tobacco Use Types Packs/Day Years Used Date Smoking Tobacco: Former Cigarettes Q uit: 06/27/1969 Smokeless Tobacco: Never Tobacco Cessation:Counseling Given: Not Answered AUDIT-C Answer Date Recorded Frequency of Alcohol Consumption Not on file 04/17/2025 Q2: How many drinks containi ng alcohol do you have on a typical day when you are drinking? Patient does not drink Frequency of Binge Drinking Not on file 04/08 Sex and Gender Information Value Date Recorded Sex Assigned at Not on file Legal Sex Male 3:51 AM GEAR ROLLER Gender Identity Not on file Sexual Orientation Not on file Last Filed Vital Signs Vital Sign Reading Time Taken Comments Blood Pressure 139/73 04/17/2025 2:42 PM GEAR ROLLER Pulse 86 04/17/2025 2:42 PM GEAR ROLLER Temperature 36.4 C (97.6 F) 04/17/2025 2:42 PM GEAR ROLLER Respiratory Rate 20 04/17/2025 2:42 PM GEAR ROLLER Oxygen Saturation 96% 04/17/2025 2:42 PM GEAR ROLLER Inhaled Oxygen Concentration - - Weight 126.1 kg (277 lb 14.4 oz) 04/17/2025 2:42 PM GEAR ROLLER Height 185.4 cm (6' 1) 04/17/2025 2:42 PM GEAR ROLLER Body Mass Index 36.66 04/17/2025 2:42 PM GEAR ROLLER Plan of Treatment Health Maintenance Due Date Last Done Comments Depression Screening 1945 Fall Risk Assessment 1945 Hepatitis C Screening 1945 Hepatitis B Screening 1964 Zoster Vaccine (1 of 2) 1996 Abdominal Aortic Aneurysm (A AA) Screen 12/15/2011 Well Visit 65+ 12/15/2011 Covid-19 Vaccine (2024-2 6 season) 2025 04/28/2021, 09/06/2020, 08/16/2020 Influenza Vaccine (#1) 2025 4, 03/18/2022, 03/08/2019, Additional history exists DTaP/Tdap/Td Vaccine (3 - Td or Tdap) 08/13/2031 08/12/2021, 11/13/2016 Pneumococcal vaccine 65+ Completed 022, 06/06/2019, 05/08/2011 Insurance MEDICARE [facility] FED[facility]AL MEDICARE [facility] FED[employer]AL Care Teams Strip Catcher Relationship Specialty Start Date End Date Osmany Dalton DO PCP - General Internal Medicine 02/01/22
--- OUTSIDE RECORDS SUMMARY | 2025-05-09 14:55 | XMS_ITS | Encounter Summary ---
Author Organization [facility] Address [address] [place] [address] Care Team Providers Care Rn Angiography Name Role Phone Unavailable Primary Care Provider Unavailabl e Encounter Details Date Type Department Care Team (Late st Contact Info) Description 11/03/2019 Lab Requisition [facility] DermPath Lab [address] [facility] [place] [address] Servando Cuellar MD [address] [place] [address] Social History Tobacco Use Types Packs/Day Years Used Date Smoking Tobacco: Never Assessed Sex and Gender Information Value Date Recorded Sex Assigned at Not on file Legal Sex Male 11:24 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 Gender Identity Not on file Sexual Orientation Not on file documented as of this encounter Plan of Treatment Not on file documented as of this encounter Procedures Procedure Name Priority Date/Time Associated Diagnosis Comments DERMATOPATHOLOGY Routine 11/02/2019 12:0 0 AM CDT documented in this encounter Results * DERMATOPATHOLOGY (11/02/2019 12:00 AM CDT) Case Report Dermatopathology Report Case: [id number] Authorizing Provider: Servando Cuellar MD Collected: 11/02/2019 12:00 AM Ordering Location: [facility] DermPath Lab Received: 11/03/2019 12:37 PM Pathologist: [...] specimen consists of a shave biopsy measuring [id number], bisected. Jar 0. 0 12:33 PM CDT [...] determined by the Dermatopathology Laboratory at [facility], directed by Dr. Johnson Souza. These tests need not be, and therefore are not, approved by the [place] Food and Drug Administration. The tests are used for clinical purposes. Billing Codes Specimen Charges Stain Charges 22973 1 0 12:33 PM CDT DERMATOPATHOLOGY LABORATORY Embedded Images 0 12:33 PM CDT DERMATOPATHOLOGY LABORATORY Pathology/Cytolog y TISSUE SPECIMEN FROM SKIN / Unknown 11/02/2019 11/03/2019 12:37 PM CDT Servando Cuellar MD LAB - PATHOLOGY/CYTOLOGY ORD ERABLES Final Result DERMATOPATHOLOGY LABORATORY [facility] - Department of Dermatology [facility] [address] [place] [address] documented in this encounter Visit Diagnoses Not on filedocumented in this encounter
--- OUTSIDE RECORDS SUMMARY | 2025-05-09 14:55 | XMS_ITS | Clinical Summary ---
Author Organization [facility] Address [address] [place] [address] Care Team Providers Care Inspector Screen Printing Name Role Phone Unavailable Primary Care Provider Unavailabl e Source Comments [facility],non-owned Affiliates and Associated Physician Practices is amultiple site organization consisting of ambulatory clinics and hospital sitesin [place], [place]. This disclosure is being madepursuant to the Care Everywhere program and may not contain all information available regarding this patient. 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 Gender Identity Not on file Sexual Orientation [...] yrs (1 - 1-dose 75+ series) 2021 DEPRESSION SCREENING 06/08/2024 COVID-19 VACCINE ( - 2024-2 6 season) 2025 INFLUENZA VACCINE (#1) 2025 HEPATITIS B VACCINE [...] age to complete this topic Insurance [facility] MEDICARE MEDICARE [facility] SELF PAY NO INSURANCE Member Subscriber Plan / Payer (Ef fective for All Dates) Name:Mike Quiroga Member ID:Not on file Relation to Subscriber:Not on file Name:MIKE QUIROGA Subscriber ID:Not on file (Home) Address: [address] [place] [address] [place] [address] Payer ID:Not on file Group ID:Not on file Type:Self Pay Address: [facility]
[2025-05-09 19:24] LABS: Anion Gap 3 mmol/L (4-12); Blood Urea Nitrogen 15 mg/dL (9-20); Calcium 9.2 mg/dL (8.4-10.2); Carbon Dioxide 31 mmol/L (22-30); Chloride 102 mmol/L (98-107); Estimated Glomerular Filt Rate > 60; Glucose 89 mg/dL (65-110); Potassium 3.7 mmol/L (3.4-5.0); Sodium 136 mmol/L (137-145)
== END 2025-05-09 13:50 | disposition home or self-care (01) ==
LOC: ANHGOSHLAB 13:50
PROVIDERS: PCP Internal Medicine; Visit Provider Internal Medicine Cardiovascular Disease
DX: I25.10 Atherosclerotic heart disease of native coronary artery without angina pectoris (principal)
CPT/HCPCS: 36415; 80048

== ENCOUNTER 2025-05-30 09:26 | Outpatient (CLI) | payer MEDICARE, BC, SELFPAY ==
--- NOTE | ~2025-05-30 | XR_ITS ---
Examination: XR chest 2V Clinical History: R05.9 - Cough, unspecified Comparison: 01/31/2022 Technique: PA and Lateral Findings: Cardiomediastinal silhouette normal size and configuration. No focal airspace consolidation or pleural effusion. Calcified granulomata. No acute bony abnormality. IMPRESSION: 1. No acute cardiopulmonary findings. Reviewed, dictated and finalized at location R. INERY WORKER
== END 2025-05-30 09:27 | disposition home or self-care (01) ==
PROVIDERS: PCP Internal Medicine Pulmonary Disease; Visit Provider Internal Medicine
DX: J40 Bronchitis, not specified as acute or chronic (principal); I27.20 Pulmonary hypertension, unspecified
CPT/HCPCS: 71046